=== PATIENT | male | born 1950 | race Caucasian/White ===

== ENCOUNTER 2017-04-27 14:13 | Outpatient (CLI) | payer OTHER | END 2017-04-27 14:14 | disposition critical access hospital (66) | DX: R55 Syncope and collapse (principal) | CPT/HCPCS: A0425; A0427 ==

== ENCOUNTER 2017-04-27 14:36 | Inpatient (IN) | payer OTHER ==
--- NOTE | 2017-04-27 14:44 | ED Physician Documentation ---
PD HPI SYNCOPE - Stated complaint Stated Complaint: SYNCOPE - History obtained from History obtained from: Patient, EMS - History of Present Illness Witnessed: Witnessed (He was at a meeting this morning, had a syncopal episode without injury while sitting. Paramedics were summoned and he felt like he had that go to the bathroom and on ambulating to the bathroom had a second syncopal episode. This is not associated with chest pain, shortness of breath, or abdominal pain. He was incontinent of stool with the second round of syncope. He had 1 L of normal saline prior to arrival. He has a history of coronary disease.) Review of Systems Ten Systems: 10 systems reviewed and negative Constitutional: reports: Fatigue. denies: Fever, Chills Cardiac: denies: Chest pain / pressure, Palpitations Respiratory: denies: Dyspnea, Cough PD PAST MEDICAL HISTORY - Past Medical History Cardiovascular: [place] Respiratory: COPD Neuro: None GI: None : Renal insuffiency HEENT: None Psych: None Musculoskeletal: None Derm: None - Past Surgical History Past Surgical History: Yes HEENT: Other - Present Medications Home Medications: Ambulatory Orders Medication Instructions Recorded Confirmed Atorvastatin [Lipitor] 40 mg PO DAILY 03/04/16 03/04/16 Chlorthalidone 50 mg PO DAILY 03/04/16 03/04/16 Lisinopril 20 mg PO DAILY 03/04/16 03/04/16 Metoprolol Tartrate 25 mg PO BID 03/04/16 03/04/16 amLODIPine [Norvasc] 10 mg PO DAILY 03/04/16 03/04/16 cloNIDine [Catapres] 0.1 mg PO TID 03/04/16 03/04/16 - Allergies Allergies/Adverse Reactions: Allergies Allergy/AdvReac Type Severity Reaction Status Date / Time Sulfa (Sulfonamide Allergy Unknown UNKNOWN Verified 04/27/17 14:51 Antibiotics) - Social History Does the pt smoke?: Yes Smoking Status: Current every day smoker Does the pt drink ETOH?: Yes Does the pt have substance abuse?: No - Family History Family history: reports: Non contributory - Immunizations Immunizations are current?: No PD ED PE NORMAL - Vitals Vital signs reviewed: Yes - General General: Alert and oriented X 3, No acute distress - HEENT HEENT: PERRL, EOMI - Neck Neck: Supple, no meningeal sign, No bony TTP - Cardiac Cardiac: RRR, No murmur - Respiratory Respiratory: No respiratory distress, Clear bilaterally - Abdomen Abdomen: Soft, Non tender - Rectal Rectal: Other (Brown guaiac-negative stool) - Back Back: No CVA TTP, No spinal TTP - Derm Derm: Normal color, Warm and dry - Extremities Extremities: No edema, No calf tenderness / cord - Neuro Neuro: Alert and oriented X 3, Normal speech - Psych Psych: Normal mood, Normal affect Results - Vitals Vitals: Vital Signs - 24 hr 04/27/17 04/27/17 04/27/17 14:40 15:08 15:40 Temperature 36.0 C L Heart Rate 57 L Respiratory 17 Rate Blood Pressure 156/78 H 173/87 H O2 Saturation 97 Oxygen O2 Source Room air - EKG (time done) 1502 Rate: Rate (enter#) (56) Rhythm: NSR, LAE Intervals: Normal [place] QRS: LVH Ischemia: Q waves (inferior) Compare to prior EKG: Unchanged from prior EKG (from 03/03/16) Computer interpretation: Agree with computer - Labs Labs: Laboratory Tests 04/27/17 04/27/17 04/27/17 15:20 15:20 15:20 WBC 12.8 H RBC 3.97 L Hgb 11.5 L Hct 35.5 L MCV 89.5 MCH 28.9 MCHC 32.3 RDW 13.7 Plt Count 211 MPV 8.2 Neut # 10.8 H Lymph # 1.0 L [place] # 0.6 Eos # 0.2 Baso # 0.1 Absolute Nucleated RBC 0.00 Nucleated RBCs 0.0 Sodium 139 Potassium 5.6 H Chloride 110 Carbon Dioxide 19 L Anion Gap 10.0 BUN 75 H Creatinine 3.1 H Estimated GFR (MDRD) 20 L Glucose 119 H Calcium 8.3 L Total Bilirubin 0.5 AST 15 ALT 12 Alkaline Phosphatase 109 Troponin I < 0.04 Total Protein 6.6 L Albumin 3.3 Globulin 3.3 Albumin/Globulin Ratio 1.0 Lipase 26 PD MEDICAL DECISION MAKING - ED course ED course: 66-year-old gentleman on multiple antihypertensives including chlorthalidone after a syncopal events. Guaiac negative. EKG without change. Noted to have acute on chronic renal failure in a prerenal pattern. Placed on IV fluids. Called to Dr. Powell for admission at 3:51 PM. Departure - Departure Disposition: 66 [facility] DC/Xfer Clinical Impression: Syncope Qualifiers: Syncope type: unspecified Qualified Code(s): R55 - Syncope and collapse ARF (acute renal failure) Qualifiers: Acute renal failure type: unspecified Qualified Code(s): N17.9 - Acute kidney failure, unspecified Condition: Serious
[2017-04-27 15:38] LABS: BASOPHILS # (AUTO) 0.1 10^3/uL (0.0-0.1); BASOPHILS % (AUTO) 0.6 %; EOSINOPHILS # (AUTO) 0.2 10^3/uL (0.0-0.7); EOSINOPHILS % (AUTO) 1.9 %; HCT - HEMATOCRIT 35.5 % (42.0-52.0); HGB - HEMOGLOBIN 11.5 g/dL (14.0-18.0); MEAN CORPUSCULAR HEMOGLOBIN 28.9 pg (27.0-31.0); MEAN CORPUSCULAR HGB CONC 32.3 g/dL (32.0-36.0); MEAN CORPUSCULAR VOLUME 89.5 fL (80.0-94.0); MEAN PLATELET VOLUME 8.2 fL (7.4-11.4); MONOCYTES # (AUTO) 0.6 10^3/uL (0.0-1.0); MONOCYTES % (AUTO) 4.7 %; NEUTROPHILS # (AUTO) 10.8 10^3/uL (1.5-6.6); NEUTROPHILS % (AUTO) 84.8 %; RED BLOOD COUNT 3.97 10^6/uL (4.70-6.10); RED CELL DISTRIBUTION WIDTH 13.7 % (12.0-15.0); UNCORRECTED WHITE BLOOD COUNT 12.8 x10^3/uL; WHITE BLOOD COUNT 12.8 x10^3/uL (4.8-10.8)
[2017-04-27 15:39] LABS: BILIRUBIN,TOTAL 0.5 mg/dL (0.2-1.0); CALCIUM 8.3 mg/dL (8.5-10.3); CREATININE 3.1 mg/dL (0.6-1.2); POTASSIUM 5.6 mmol/L (3.5-5.0); TOTAL PROTEIN 6.6 g/dL (6.7-8.2)
[2017-04-27] MEDS ORDERED: SODIUM CHLORIDE 0.9% 1,000 ML IV ONE (15:51)
[2017-04-27] MEDS ORDERED: SODIUM CHLORIDE FLUSH 0.9% 10 ML SYRINGE IVP PRN (17:08)
[2017-04-27] MEDS ORDERED: ONDANSETRON 4 MG/2 ML VIAL IVP PRN (17:08)
[2017-04-27] MEDS ORDERED: ACETAMINOPHEN 325 MG TABLET PO PRN (17:08)
[2017-04-27] MEDS ORDERED: ZOLPIDEM 5 MG TABLET PO PRN (17:08)
[2017-04-27] MEDS ORDERED: SODIUM POLYSTYRENE SULFONATE 15 GM/60 ML BOTTLE PO SCH (18:00)
[2017-04-27] MEDS ORDERED: SODIUM CHLORIDE 0.9% 1,000 ML IV SCH (18:00)
[2017-04-27] MEDS: cloNIDine 0.1 MG TABLET PO SCH ×2 (18:23→21:26)
--- NOTE | 2017-04-27 18:24 | HISTORY & PHYSICAL EXAMINATION ---
Chief Complaint - Chief Complaint Chief Complaint: syncope History of Present Illness - Admitted From Admitted From:: [facility] - History Obtained From History obtained from: patient - History of Present Illness Pain/Problem Location Description: Pt denies pain HPI Comment/Other: 66 years old male with Past Medical History of Syncope, uncontrolled Hypertension, vague remote history of "heart attack" and chronic renal insufficiency, cigarette smoker, who present Emergency Department for evaluation syncope. Patient report he had two episode of syncope. The first one happened when he had a meeting while sitting. The second one occurs when he tried to go to the bathroom when paramedics arrived. Patient report he did not have any injuries in these two episodes. There is no chest pain, palpitation, short of breathing, cough, nausea, vomit, diaphoretic or other symptoms associated with this two episodes. Upon review of patient's medical history, patient had similar episode of syncope occurred on 02/2016. Unfortunately patient refused to be further evaluated at that time, left hospital the same day. His last myocardial perfusion scan at April 2013 revealed a large focus of markedly decreased activity in the inferior wall extending to the septum on both stress and rest views. Ejection fraction was estimated at 40%. Patient's initiate BP at ER was 156/78 then upto 194/87. After admission of Clonidine, patient's BP was down to 145/75. Pt had slight elevated WBC at 12.8, Potassium 5.6, BUN 75, creatinine 3.1, troponin less than 0.04. Patient had BUN 54, Creatinine 2.5 with GFR of 26 at 08/2015. Patient is admitted for syncope and acute on chronic renal insufficiency. Review of Systems - Constitutional Constitutional: reports: Fatigue, Weakness. denies: Fever, Chills, Malaise, Poor appetite, Diaphoresis, Night sweats, Weight gain, Weight loss, Other - Eyes Eyes: denies: Pain, Irritation, Amaurosis, Blurred vision, Spots in vision, Field loss, Vision loss, Dipolpia, Corrective lenses, Other - Ears, Nose & Throat Ears, Nose & Throat: denies: Ear pain, Hearing loss, Hearing aids, Tinnitus, Vertigo, Nasal pain, Nasal discharge, Nosebleeds, Nasal obstruction, Nasal congestion, Postnasal drainage, Dentures, Sore throat, Hoarseness, Mouth lesions , Bleeding gums, Dental decay, Dental pain, Other - Cardiovascular Cariovascular: reports: Syncope. denies: Irregular heart rate, Palpitations, Chest pain, Edema, Lightheadedness, Exertional dyspnea, Decr. exercise tolerance , Orthopnea, Other - Respiratory Respiratory: denies: Cough, Sputum production, Wheezing, Snoring, Hemoptysis, Orthopnea, SOB at rest, SOB with exertion, Apnea, Stridor, Pleuritic pain, Other - Gastrointestinal Gastrointestinal: denies: Abdominal pain, Abdominal distention, Constipation, Diarrhea, Change in bowel habits, Rectal bleeding, Black stools, Bloody stools, Nausea, Vomiting, Bile emesis, Gus blood emesis, Coffee grounds emesis, Reflux /heartburn, Bloating, Poor appetite, Other - Genitourinary Genitourinary: denies: Dysuria, Frequency, Urgency, Hematuria, Incontinence, Flank pain, Nocturia, Urethral discharge, Sexual dysfunction, Other - Musculoskeletal Musculoskeletal: denies: Muscle pain, Back pain, Muscle aches, Stiffness, Limited range of motion, Muscle weakness, Gout, Joint pain, Joint swelling, Other - Integumentary Integumentary: denies: Rash, Pruritis, Lesions, Dryness, Lumps, Acne, Pigment changes, Nail changes, Hair changes, Other - Neurological Neurological: reports: General weakness. denies: Focal weakness, Headache, Dizziness, Numbness, Memory problems, Pre-existing deficit, Abnormal gait, Seizures, Incoordination, Slurred speech, Other - Psychiatric Psychiatric: denies: Depression, Anxiety, Suicidal, Delusions, Hallucinations, Homicidal, Other - Endocrine Endocrine: denies: Polyuria, Polydypsia, Polyphagia, Intolerance to cold, Intolerance to heat, Other - Hematologic/Lymphatic Hematologic/Lymphatic: denies: Anemia, Bruising, Petechiae, Blood clots, Lymphadenopathy, Bleeding tendencies, Recurrent infections, Other History - Past Medical History Cardiovascular: reports: Hypertension, [place] Respiratory: reports: COPD Neuro: reports: None GI: reports: None : reports: Renal insuffiency HEENT: reports: None Psych: reports: None Musculoskeletal: reports: None Derm: reports: None MRSA Hx?: No - Past Surgical History Ortho: reports: Other HEENT: reports: Tonsil/Adenoidectomy, Other - Family & Social History Family History: Mother: (both were from [place]), Father: Living arrangement: At home Social History Notes: work at [employer] store - Substance History Use: Uses substance without health or social issues: Tobacco (one pack per day) Dependence: Experiences withdrawal or developed tolerances: Tobacco Tobacco Details: Cigarettes (one pack per day) - POLST POLST Status: Full Code Meds/Allgy - Home Medications Home Medications: Ambulatory Orders Medication Instructions Recorded Confirmed Chlorthalidone 50 mg PO DAILY 03/04/16 04/28/17 Lisinopril 40 mg PO DAILY 03/04/16 04/28/17 Amlodipine Besylate [Norvasc] 10 mg PO DAILY 04/28/17 04/28/17 Aspirin [Aspirin EC] 81 mg PO DAILY 04/28/17 04/28/17 Atorvastatin Calcium 40 mg PO QPM 04/28/17 04/28/17 Clonidine HCl [Catapres] 0.2 mg PO BID 04/28/17 04/28/17 Metoprolol Succinate [Toprol Xl] 50 mg PO BID 04/28/17 04/28/17 - Allergies Allergies/Adverse Reactions: Allergies Allergy/AdvReac Type Severity Reaction Status Date / Time Sulfa (Sulfonamide Allergy Unknown UNKNOWN Verified 04/27/17 14:51 Antibiotics) Exam - Vital Signs Vital Signs: Vital Signs x48h Temp Pulse Pulse Resp BP BP Pulse Ox 04/27/17 17:57 36.3 C L 62 18 193/87 H 98 04/27/17 17:40 58 L 18 174/84 H 98 - Physical Exam General Appearance: positive: No acute distress, Alert. negative: Mild distress , Moderate distress, Severe distress, Anxious, Lethargic, Other Eyes Bilateral: positive: Normal inspection, PERRL. negative: EOMI, No lid inflammation, Conjunctivae nml, No scleral icterus, Other ENT: positive: ENT inspection nml, Pharynx nml, No signs of dehydration. negative: Purulent nasal drainage, Pharyngeal erythema, Oral lesions, Dry mucous membranes, Other Neck: positive: Nml inspection, No JVD, Trachea midline Respiratory: positive: Chest non-tender, No respiratory distress, Other ( diminished lung bilateral). negative: Breath sounds nml, Wheezes, Rales, Rhonchi Cardiovascular: positive: Regular rate & rhythm, No murmur, No gallop. negative : Irregularly irregular, Extrasystoles, Tachycardia, Bradycardia, PMI displaced laterally, JVD present, Systolic murmur, Diastolic murmur, Gallop/S3, Gallop/S4 , Friction rub, Decreased pulse(s), Crepitus, Other Peripheral Pulses: positive: 2+. negative: 1+, 0, Other Abdomen: positive: Non-tender, Nml bowel sounds, No distention. negative: No organomegaly, Tenderness, Guarding, Rebound, Hepatomegaly, Splenomegaly, Mass, Abnml bowel sounds, Bruit, Other Back: positive: Nml inspection. negative: CVA tenderness (R), CVA tenderness (L ), Other Skin: positive: Color nml, Warm. negative: No rash, Dry, Cyanosis, Diaphoresis , Pallor, Skin rash, Decubitus, Laceration (cm), Puncture wound, Embolic lesions , Other Extremities: positive: Non-tender, Full ROM, Nml appearance. negative: No pedal edema, Pedal edema, Calf tenderness, Joint swelling, Mary's sign/cords, Other Neurologic/Psychiatric: positive: Oriented x3, CN's nml (2-12), Motor nml, Sensation nml, Mood/affect nml. negative: Disoriented to person, Disoriented to place, Disoriented to time, Weakness, Sensory loss, Facial droop, Slurred/ abnml speech, Depressed mood/affect, Other Conclusion/Plan - Problem List (1) Syncope Conclusion/Plan: 1, syncope: Strong family history of [place], and vague history of patient's own [place], uncontrolled HTN, abnormal ECHO study at 2013, all strongly suggest syncope could be caused by abnormal function of heart Plan: ECHO, follow up. on tele fall precautions Qualifiers: Syncope type: unspecified Qualified Code(s): R55 - Syncope and collapse - Lab Results Fish Bones: 04/28/17 04:55 04/28/17 04:55 - EKG Results EKG Comparison: Unchanged from prior EKG EKG Findings: rate 56, rhythm: NSR, LAE, intervals: normal [place], QRS: LVH, Ischemia: Q [place] ( inferior) - Other Other Results/Comments: 1, syncope: Strong family history of [place], and vague history of patient's own [place], uncontrolled HTN. Plan: ECHO, follow up. on tele fall precautions 2, acute on chronic renal insufficiency Plan: moderate IVF NC 125 cc/h. EF 40% was at four years hold nephrotoxic agents, hydration, control of BP, hold lisinopril test total CK US of kidney 3, uncontrolled HTN Plan: reconciliation of home BP medication, closely monitor 4, Hyperkalemia at 5.6 once kayexalate, recheck potassium, EKG without changing from prior one (02/2016 ) 5, CHF, diastolic or systolic or combination. check BNP, and CXR, ECHO 6, Tobacco abuse advise patient cessation, patient decline nicotin patch Prophylaxis: pepcid for GI, SCD and Heparin for DVT
[2017-04-27] MEDS: SODIUM CHLORIDE 0.9% 1,000 ML IV SCH ×2 (18:31→22:26)
[2017-04-27] MEDS ORDERED: ATORVASTATIN 40 MG TABLET PO SCH (21:00)
[2017-04-27] MEDS: METOPROLOL TARTRATE 25 MG TABLET PO SCH (21:06)
[2017-04-27] MEDS: HEPARIN 5,000 UNIT/ML VIAL SUBQ SCH (21:11)
[2017-04-27] MEDS: SODIUM CHLORIDE FLUSH 0.9% 10 ML SYRINGE IVP SCH (21:11)
[2017-04-28 05:20] LABS: BASOPHILS % (AUTO) 0.5 %; EOSINOPHILS # (AUTO) 0.2 10^3/uL (0.0-0.7); HCT - HEMATOCRIT 29.3 % (42.0-52.0); HGB - HEMOGLOBIN 9.9 g/dL (14.0-18.0); LYMPHOCYTES # (AUTO) 1.2 10^3/uL (1.5-3.5); LYMPHOCYTES % (AUTO) 14.1 %; MEAN CORPUSCULAR HEMOGLOBIN 30.2 pg (27.0-31.0); MEAN CORPUSCULAR HGB CONC 33.8 g/dL (32.0-36.0); MEAN CORPUSCULAR VOLUME 89.2 fL (80.0-94.0); MEAN PLATELET VOLUME 8.2 fL (7.4-11.4); MONOCYTES # (AUTO) 0.5 10^3/uL (0.0-1.0); MONOCYTES % (AUTO) 5.7 %; NEUTROPHILS # (AUTO) 6.7 10^3/uL (1.5-6.6); NEUTROPHILS % (AUTO) 77.7 %; NUCLEATED RED BLOOD CELLS AUTO 0.1 /100WBC; RED BLOOD COUNT 3.28 10^6/uL (4.70-6.10); RED CELL DISTRIBUTION WIDTH 13.9 % (12.0-15.0); UNCORRECTED WHITE BLOOD COUNT 8.7 x10^3/uL; WHITE BLOOD COUNT 8.7 x10^3/uL (4.8-10.8)
[2017-04-28] MEDS: SODIUM CHLORIDE 0.9% 1,000 ML IV SCH (05:52)
[2017-04-28] MEDS: cloNIDine 0.1 MG TABLET PO SCH ×2 (05:52→12:57)
[2017-04-28] MEDS: SODIUM CHLORIDE FLUSH 0.9% 10 ML SYRINGE IVP SCH (05:55)
[2017-04-28 06:08] LABS: ALBUMIN/GLOBULIN RATIO 1.2 (1.0-2.2); BILIRUBIN,TOTAL 0.8 mg/dL (0.2-1.0); CALCIUM 7.9 mg/dL (8.5-10.3); CREATININE 3.5 mg/dL (0.6-1.2); POTASSIUM 5.2 mmol/L (3.5-5.0); TOTAL PROTEIN 5.6 g/dL (6.7-8.2)
--- NOTE | 2017-04-28 08:25 | PROVIDER PROGRESS NOTE ---
Subjective - Prog Note Date Prog Note Date: 04/28/17 Prog Note Time: 08:19 - Subjective Pt reports feeling: Improved Subjective: pt state he feels much better, no complaints. Patient told me he want to leave hospital now. Pt told to nurse the same thing, he want to leave. After I discussed with patient, patient agree to have ECHO test, then he want to leave hospital. Objective - Vital Signs/Intake & Output Vital Signs: Vital Signs x48h Temp Pulse Resp BP Pulse Ox 04/28/17 07:58 36.6 C 56 L 16 194/88 H 95 04/28/17 04:10 36.5 C 60 16 146/87 H 95 Intake & Output: Intake & Output 04/25/17 04/26/17 04/27/17 04/28/17 23:59 23:59 23:59 23:59 Intake Total 880 2059 Balance 880 2058 - Objective General Appearance: positive: No acute distress, Alert. negative: Mild distress , Moderate distress, Severe distress, Anxious, Lethargic, Other Eyes Bilateral: positive: Normal inspection, PERRL. negative: EOMI, No lid inflammation, Conjunctivae nml, No scleral icterus, Other ENT: positive: ENT inspection nml, Pharynx nml, No signs of dehydration. negative: Purulent nasal drainage, Pharyngeal erythema, Oral lesions, Dry mucous membranes, Other Neck: positive: Nml inspection, Trachea midline. negative: Thyroid nml, No JVD , Thyromegaly, Lymphadenopathy (R), Lymphadenopathy (L), Stiff neck, Kernig's sign, Brudzinski's sign, Carotid bruit, Swelling/bruising, Tracheal deviation, Other Respiratory: positive: Chest non-tender, No respiratory distress, Breath sounds nml. negative: Wheezes, Rales, Rhonchi, Other Cardiovascular: positive: Regular rate & rhythm, No murmur, No gallop. negative : Irregularly irregular, Extrasystoles, Tachycardia, Bradycardia, PMI displaced laterally, JVD present, Systolic murmur, Diastolic murmur, Gallop/S3, Gallop/S4 , Friction rub, Decreased pulse(s), Crepitus, Other Peripheral Pulses: 2+ Radial (R), 2+ Radial (L), 2+ Dorsalis pedis (R), 2+ Dorsalis pedis (L) Abdomen: positive: Non-tender, Nml bowel sounds, No distention. negative: No organomegaly, Tenderness, Guarding, Rebound, Hepatomegaly, Splenomegaly, Mass, Abnml bowel sounds, Bruit, Other Back: positive: Nml inspection. negative: CVA tenderness (R), CVA tenderness (L ), Other Skin: positive: Color nml, No rash, Other (cold for distal four extremities) Extremities: positive: Non-tender, Full ROM, Nml appearance. negative: No pedal edema, Pedal edema, Calf tenderness, Joint swelling, Mary's sign/cords, Other Neurologic/Psychiatric: positive: Oriented x3, CN's nml (2-12), Motor nml, Sensation nml. negative: Mood/affect nml, Disoriented to person, Disoriented to place, Disoriented to time, Weakness, Sensory loss, Facial droop, Slurred/ abnml speech, Depressed mood/affect, Other - Lab Results Fish Bones: 04/28/17 04:55 04/28/17 04:55 Other Labs: Lab Results x24hrs 04/28/17 04/28/17 04/28/17 Range/Units 04:55 04:55 04:55 WBC 8.7 (4.8-10.8) x10^3/uL RBC 3.28 L (4.70-6.10) 10^6/uL Hgb 9.9 L (14.0-18.0) g/dL Hct 29.3 L (42.0-52.0) % MCV 89.2 (80.0-94.0) fL MCH 30.2 (27.0-31.0) pg MCHC 33.8 (32.0-36.0) g/dL RDW 13.9 (12.0-15.0) % Plt Count 180 (130-450) 10^3/uL MPV 8.2 (7.4-11.4) fL Neut # 6.7 H (1.5-6.6) 10^3/uL Lymph # 1.2 L (1.5-3.5) 10^3/uL [place] # 0.5 (0.0-1.0) 10^3/uL Eos # 0.2 (0.0-0.7) 10^3/uL Baso # 0.0 (0.0-0.1) 10^3/uL Absolute Nucleated RBC 0.01 x10^3/uL Nucleated RBCs 0.1 /100WBC Sodium 138 (135-145) mmol/L Potassium 5.2 H (3.5-5.0) mmol/L Chloride 113 H (101-111) mmol/L Carbon Dioxide 17 L (21-32) mmol/L Anion Gap 8.0 (6-13) BUN 81 H* (6-20) mg/dL Creatinine 3.5 H (0.6-1.2) mg/dL Estimated GFR (MDRD) 18 L (>89) Glucose 100 (70-100) mg/dL Calcium 7.9 L (8.5-10.3) mg/dL Total Bilirubin 0.8 (0.2-1.0) mg/dL AST 12 (10-42) IU/L ALT 11 (10-60) IU/L Alkaline Phosphatase 96 (42-121) IU/L Total Creatine Kinase 34 (22-269) IU/L Total Protein 5.6 L (6.7-8.2) g/dL Albumin 3.0 L (3.2-5.5) g/dL Globulin 2.6 (2.1-4.2) g/dL Albumin/Globulin Ratio 1.2 (1.0-2.2) Assessment/Plan - Problem List (1) Syncope Impression: pt's vital is stable, but creatinine from 3.1 to 3.5. pt want to leave hospital, now he agree to have ECHO, then he will leave. check BNP and CXR check total CK for acute CKD, continue IVF. Pt's elevated creatinine and BUN seems not response to hydration well. pt's BP is well controlled Qualifiers: Syncope type: unspecified Qualified Code(s): R55 - Syncope and collapse
[2017-04-28] MEDS: METOPROLOL TARTRATE 25 MG TABLET PO SCH (08:30)
[2017-04-28] MEDS: HEPARIN 5,000 UNIT/ML VIAL SUBQ SCH (08:30)
[2017-04-28] MEDS ORDERED: amLODIPine 5 MG TABLET PO SCH (09:00)
[2017-04-28] MEDS ORDERED: FAMOTIDINE 20 MG TABLET PO SCH (09:00)
[2017-04-28] MEDS ORDERED: POLYETHYLENE GLYCOL 3350 17 GM PACKET PO SCH (09:00)
--- NOTE | 2017-04-28 10:03 | Discharge Plan ---
Discharge Plan Disposition: Home, Self Care Condition: Serious Diet: Low Sodium Activity Restrictions: Additional Comments (bed rest until cleaned by PCP) Shower Restrictions: No Driving Restrictions: Yes (until cleaned by PCP) Weight Bearing: Full Weight Instruction Topics: Echo Transthoracic Surface, Syncope Causes Additional Instructions or Follow Up instructions: See PCP as soon as possible, or in one week, which will be the earliest. Make appointment see high lead yarder and nephrology as soon as possible, or in one week , which will be the earliest. Patient requests he wants to be discharged on today. Patient is advised that his medical condition is serious, and could be deteriorated. Patient is advised if his symptoms return or worsen, please call 911 or go to the nearest [facility] room. Patient is welcomed back to our service. Follow-Up Care: [facility] - [facility] No Smoking: If you smoke, Please STOP! Call for help. Follow-up with: Samuel Zuñiga MD [Credentialed Staff Provider] -
--- NOTE | 2017-04-28 12:09 | XRAY Preliminary Report ---
Exam: XR Chest 1 View IMPRESSION: Unremarkable chest for age, body size and inspiratory effort. No pneumonia, CHF or other demonstrated cause for shortness of breath. [facility] SITE ID: [id number]
--- NOTE | 2017-04-28 12:12 | XRAY Report ---
EXAM: CHEST RADIOGRAPHY, PORTABLE ONE VIEW EXAM DATE: 04/28/2017 09:31 AM. CLINICAL HISTORY: 66-year-old male with shortness of breath. COMPARISON: Two-view chest radiograph 03 Mar 2016. TECHNIQUE: 0856 hour AP upright portable view. FINDINGS: Lungs/Pleura: No focal opacities evident. No pleural effusion. No pneumothorax. Mediastinum: Within exam limitations, cardiomediastinal contour is normal. No pulmonary vascular malcom estion or adenopathy. Other: Trachea is midline. Osseous structures unremarkable. IMPRESSION: Unremarkable chest for age, body size and inspiratory effort. No pneumonia, CHF or other demonstrated cause for shortness of breath. [facility] Referring Provider Line: [phone] SITE ID: [id number]
[2017-04-28] MEDS ORDERED: CHLORTHALIDONE 25 MG TABLET PO SCH (13:00)
[2017-04-28 13:17] VITALS: BP 209/89
--- NOTE | 2017-04-30 10:12 | DISCHARGE SUMMARY ---
DATE OF ADMISSION: 04/27/2017 DATE OF DISCHARGE: 04/28/2017 PRIMARY CARE PROVIDER: [facility]. The patient does not have stable primary care provider because the shift. The patient comes here with chief complaint of syncope. After patient in the emergency room we also f ound the patient to have renal insufficiency, most likely for acute on chronic renal insufficiency. T he patient reports he had 2 episodes of syncope yesterday. The patient admit date was 04/28/2017 and discharged 04/29/2017. The patient wanted to be discharged today, but we wanted patient to continue i npatient because the patient's medical condition is severe, but the patient wanted to be discharged t rajwinder. DISCHARGE DIAGNOSES: 1. Syncope. 2. Acute and chronic renal insufficiency. 3. Uncontrolled hypertension, currently smokes. 4. Congestive heart failure. 5. Hypokalemia. MEDICATIONS AT TIME OF DISCHARGE: 1. Metoprolol 25 mg b.i.d. 2. Amlodipine 10 mg p.o. daily. 3. Clonidine 0.5 mg q. t.i.d. 4. Chlorthalidone 50 mg p.o. daily. 5. Atorvastatin 40 mg p.o. daily. 6. Lisinopril 20 mg p.o. daily. HOSPITAL COURSE: The patient came to the emergency room yesterday and complained of having 2 episodes of syncope. In the emergency room we found the patient also has renal insufficiency, creatinine 3.1, BUN 74. Patient treated with IV fluids. Also patient on tele and fall precaution, schedule patient f or echo. Today, 04/28/2017, the patient requested to be discharged. The reason says the echo he paid last time was too expensive for him to pay back. He wanted to know t he gibson for an echo. We tried to call his insurance, but today we could not get an answer because it is Sunday, and the patient is told he can call there Sunday to get the gibson, but the patient did not want to wait until Sunday, he wanted to be discharged today. The patient was told his medical con dition is severe and could deteriorate, but the patient insisted he wanted to be discharged. The broderick ent is advised to see his PCP as soon as possible. Also advised to see car dryer and triage rn as soon as possible or in 1 week at least. Patient also advised to go to the emergency room and call 911 if symptoms return or worsen. Today we have lab tests for the patient. The patient's BUN 81, creatinine 3.5. The patient is notifie d his condition is severe. Also, for the hospitalist course please refer to 04/27/2017 my dictated H and P. On imaging studies, the patient had x-ray done on 03/29/2017, chest x-ray, reason that patient had sh ort of breath. Findings were unremarkable. No pneumonia, congestive heart failure, or other cause of short of breath. INTERVENTION: IV fluid, help for renal deficiency, chronic. Will also check patient's total CK, also order ultrasound for kidneys. For syncope, will do the test echo. The patient given fall precautions. PHYSICAL EXAMINATION: GENERAL APPEARANCE: The patient appears in no acute distress. HEENT: Eyes normal on inspection. ENT: Inspection is normal. NECK: No JVD. Trachea in midline. Normal on inspection. RESPIRATORY: Chest was nontender, no respiratory distress. CARDIOVASCULAR: Regular rate and rhythm, no murmur, no gallop. Peripheral pulses +2. ABDOMEN: . Normal bowel sounds, no distention. BACK: Normal on inspection. SKIN: Color is normal. Distal extremities are cold. EXTREMITIES: No tenderness. Full range of motion. Normal appearance. NEURO: The patient is alert, oriented x3. Cranial nerves normal. Sensation is normal. PSYCH: Mood and affect normal. FOLLOWUP: The patient advised to followup with primary care provider as soon as possible or within 1 week, which ever is first. Followup car dryer and triage rn as soon as possible or within 1 wee k, which ever is first. The patient notified his condition is severe and patient wanted to be discha rged, and patient advised if any condition continues or becomes worse, call 911 or return to the [facility] room, we welcome patient to come back to our service. The patient advised cardiac diet. Activit y, bed rest. TIME SPENT FOR DISCHARGE: More than 50 minutes. JOB #: [id number] EXT JOB #:[id number]
== END 2017-04-28 13:10 | disposition home or self-care (01) | DRG 312 ==
LOC: EDUNIT# → ED 14:36 → MS 17:08
PROVIDERS: ADMIT Nurse Practitioner Gerontology; ATTEND Nurse Practitioner Gerontology
DX: R55 Syncope and collapse (principal); I13.0 Hypertensive heart and chronic kidney disease with heart failure and stage 1 through stage 4 chronic kidney disease, or unspecified chronic kidney disease; N28.9 Disorder of kidney and ureter, unspecified; N18.9 Chronic kidney disease, unspecified; I50.9 Heart failure, unspecified; F17.200 Nicotine dependence, unspecified, uncomplicated; I25.2 Old myocardial infarction; E87.5 Hyperkalemia; Z88.2 Allergy status to sulfonamides; Z82.49 Family history of ischemic heart disease and other diseases of the circulatory system
CPT/HCPCS: 36415; 71010; 80053; 82550; 83690; 83880; 84484; 85025; 93005; 96360; 99284; 99285

== ENCOUNTER 2017-10-07 09:09 | Emergency (ER) | payer MEDICARE, OTHER ==
--- NOTE | 2017-10-07 10:48 | ED Physician Documentation ---
History of Present Illness - Stated complaint Stated Complaint: BLOOD IN COLOSTOMY BAG - Chief complaint Chief Complaint: Abd Pain - History obtained from History obtained from: Patient, Family - History of Present Illness Timing: Today - Additonal information Additional information: 67-year-old male with a history of congestive heart failure and end-stage renal dialysis has had a colostomy done 10 days ago at [facility] and he is on some Coumadin. He was recently switched from Eliquis to Coumadin about 3 days ago. This morning his ostomy bag filled with blood. Review of Systems Constitutional: denies: Fever Eyes: denies: Decreased vision Ears: denies: Ear pain Nose: denies: Rhinorrhea / runny nose, Congestion Throat: denies: Sore throat Cardiac: denies: Chest pain / pressure Respiratory: denies: Dyspnea, Cough GI: reports: Abdominal Pain, Nausea, Bloody / black stool. denies: Vomiting : denies: Dysuria, Frequency Skin: denies: Rash Musculoskeletal: denies: Neck pain, Back pain, Extremity pain Neurologic: reports: Generalized weakness. denies: Focal weakness, Numbness PD PAST MEDICAL HISTORY - Past Medical History Cardiovascular: Hypertension, [place] Respiratory: COPD Neuro: None GI: None : Renal insuffiency HEENT: None Psych: None Musculoskeletal: None Derm: None - Past Surgical History Past Surgical History: Yes General: Bowel surgery Ortho: Other HEENT: Tonsil/Adenoidectomy, Other - Present Medications Home Medications: Ambulatory Orders Medication Instructions Recorded Confirmed Chlorthalidone 50 mg PO DAILY 03/04/16 10/07/17 Lisinopril 40 mg PO DAILY 03/04/16 10/07/17 Amlodipine Besylate [Norvasc] 10 mg PO DAILY 04/28/17 10/07/17 Aspirin [Aspirin EC] 81 mg PO DAILY 04/28/17 10/07/17 Atorvastatin Calcium 40 mg PO QPM 04/28/17 10/07/17 Clonidine HCl [Catapres] 0.2 mg PO BID 04/28/17 10/07/17 Metoprolol Succinate [Toprol Xl] 50 mg PO BID 04/28/17 04/28/17 - Allergies Allergies/Adverse Reactions: Allergies Allergy/AdvReac Type Severity Reaction Status Date / Time Sulfa (Sulfonamide Allergy Unknown UNKNOWN Verified 04/27/17 14:51 Antibiotics) - Social History Does the pt smoke?: Yes Smoking Status: Current every day smoker Does the pt drink ETOH?: Yes Does the pt have substance abuse?: No - Immunizations Immunizations are current?: No - POLST POLST Status: Full Code PD ED PE NORMAL - Vitals Vital signs reviewed: Yes (hypertensive ) - General General: Alert and oriented X 3, No acute distress, Well developed/nourished, Other (67 y/o male gaunt appearing appears much older than the last time I saw him about 1 1/2 years ago. ) - HEENT HEENT: Atraumatic, PERRL - Neck Neck: Supple, no meningeal sign, No bony TTP - Cardiac Cardiac: RRR, No murmur - Respiratory Respiratory: No respiratory distress, Clear bilaterally - Abdomen Abdomen: Soft, Non tender, Other (There is an ostomy bag on the right abdomen that is filled with blood and feces. ) - Back Back: No CVA TTP, No spinal TTP - Derm Derm: Normal color, Warm and dry, No rash - Extremities Extremities: No deformity, No edema - Neuro Neuro: Alert and oriented X 3, rod greaser 2-12 intact, No motor deficit, No sensory deficit, Normal speech Eye Opening: Spontaneous Motor: Obeys Commands Verbal: Oriented GCS Score: 15 - Psych Psych: Normal mood, Normal affect Results - Vitals Vitals: Vital Signs - 24 hr 10/07/17 10/07/17 10/07/17 09:15 10:28 12:14 Temperature 37.1 C 36.2 C L Heart Rate 78 111 H 113 H Respiratory 16 12 30 H Rate Blood Pressure 132/73 H 136/91 H 140/112 H O2 Saturation 98 99 98 10/07/17 14:15 Temperature Heart Rate 102 H Respiratory 14 Rate Blood Pressure 142/90 H O2 Saturation 97 Oxygen O2 Source Room air - Labs Labs: Laboratory Tests 10/07/17 10/07/17 10/07/17 11:00 11:00 11:00 WBC 10.0 RBC 3.31 L Hgb 10.3 L Hct 30.2 L MCV 91.2 MCH 31.2 H MCHC 34.3 RDW 14.7 Plt Count 374 MPV 7.1 L Neut # 7.8 H Lymph # 1.1 L [place] # 1.0 Eos # 0.0 Baso # 0.1 Absolute Nucleated RBC 0.00 Nucleated RBC % 0.0 PT 87.2 H INR 8.4 H* Sodium 139 Potassium 3.8 Chloride 96 L Carbon Dioxide 30 Anion Gap 13.0 BUN 17 Creatinine 3.7 H Estimated GFR (MDRD) 17 L Glucose 98 Calcium 8.8 Total Bilirubin 0.4 AST 43 H ALT 19 Alkaline Phosphatase 87 Troponin I Total Protein 6.0 L Albumin 2.3 L Globulin 3.7 Albumin/Globulin Ratio 0.6 L Lipase 22 Blood Type Antibody Screen 10/07/17 10/07/17 11:00 11:28 WBC RBC Hgb Hct MCV MCH MCHC RDW Plt Count MPV Neut # Lymph # [place] # Eos # Baso # Absolute Nucleated RBC Nucleated RBC % PT INR Sodium Potassium Chloride Carbon Dioxide Anion Gap BUN Creatinine Estimated GFR (MDRD) Glucose Calcium Total Bilirubin AST ALT Alkaline Phosphatase Troponin I 0.18 Total Protein Albumin Globulin Albumin/Globulin Ratio Lipase Blood Type O NEGATIVE Antibody Screen NEGATIVE Procedures - IVC sono (time) 1040 Bedside IVC sono: IVC measures (cm) (1.87), Euvolemia PD MEDICAL DECISION MAKING - ED course Complexity details: reviewed old records, reviewed results, re-evaluated patient , considered differential, d/w patient, d/w family, d/w portfolio consultant ([place] surgery here recommends transfer back to [facility]. [facility] surgery at [facility] will consult and asks to have medicine manage this complicated case. Dr. Watts graciously agrees to accept the patient in transfer. ) ED course: 67-year-old male recently placed onto Coumadin now is bleeding from her recent surgical site. IV is begun the INR is checked. Before the INR is back the patient is given IV vitamin K while we await the INR and consideration for k- centra. INR is markedly elevated at 8.4 and he is given a corresponding dose of k-centra. Bleeding slows and arrangements are made for transfer. The ostomy bag is changed and the bleeding actually appears to be occurring from the margin of the ostomy over superior/medial surface. The area is covered with GEL FOAM and suturated with tranexamic acid. The bleeding does not slow much with this. Departure - Departure Disposition: 02 Transfer Acute Care [facility]osp Clinical Impression: Supratherapeutic INR, Bleeding from colostomy stoma Condition: Serious
[2017-10-07 11:19] LABS: BASOPHILS # (AUTO) 0.1 10^3/uL (0.0-0.1); BASOPHILS % (AUTO) 0.6 %; EOSINOPHILS % (AUTO) 0.3 %; HCT - HEMATOCRIT 30.2 % (42.0-52.0); HGB - HEMOGLOBIN 10.3 g/dL (14.0-18.0); LYMPHOCYTES # (AUTO) 1.1 10^3/uL (1.5-3.5); LYMPHOCYTES % (AUTO) 11.2 %; MEAN CORPUSCULAR HEMOGLOBIN 31.2 pg (27.0-31.0); MEAN CORPUSCULAR HGB CONC 34.3 g/dL (32.0-36.0); MEAN CORPUSCULAR VOLUME 91.2 fL (80.0-94.0); MEAN PLATELET VOLUME 7.1 fL (7.4-11.4); MONOCYTES % (AUTO) 9.9 %; NEUTROPHILS # (AUTO) 7.8 10^3/uL (1.5-6.6); RED BLOOD COUNT 3.31 10^6/uL (4.70-6.10); RED CELL DISTRIBUTION WIDTH 14.7 % (12.0-15.0)
[2017-10-07 11:26] LABS: PT - PROTHROMBIN TIME 87.2 secs (9.9-12.6)
[2017-10-07 11:32] LABS: ALBUMIN/GLOBULIN RATIO 0.6 (1.0-2.2); BILIRUBIN,TOTAL 0.4 mg/dL (0.2-1.0); CALCIUM 8.8 mg/dL (8.5-10.3); CREATININE 3.7 mg/dL (0.6-1.2); POTASSIUM 3.8 mmol/L (3.5-5.0)
[2017-10-07 11:33] LABS: INR 8.4 (0.8-1.2)
[2017-10-07] MEDS ORDERED: PROTHROMBIN COMPLEX CONC 500 UNIT VIAL IVP STA (11:36)
[2017-10-07] MEDS ORDERED: TRANEXAMIC ACID 1,000 MG/10 ML VIAL NAS STA (14:09)
[2017-10-07 14:16] VITALS: BP 142/90
[2017-10-07] MEDS ORDERED: SODIUM CHLORIDE 0.9% 1,000 ML IV ONE (14:27)
== END 2017-10-07 14:43 | disposition short-term general hospital (02) ==
LOC: ED 09:09
DX: K94.01 Colostomy hemorrhage (principal); D68.9 Coagulation defect, unspecified; I13.2 Hypertensive heart and chronic kidney disease with heart failure and with stage 5 chronic kidney disease, or end stage renal disease; N18.6 End stage renal disease; I50.9 Heart failure, unspecified; Z99.2 Dependence on renal dialysis; Z79.01 Long term (current) use of anticoagulants; I25.2 Old myocardial infarction; J44.9 Chronic obstructive pulmonary disease, unspecified; Z79.82 Long term (current) use of aspirin; F17.200 Nicotine dependence, unspecified, uncomplicated
CPT/HCPCS: 36415; 80053; 83690; 84484; 85025; 85610; 86850; 86900; 86901; 96374; 99284; 99285; C9132

== ENCOUNTER 2017-10-07 14:37 | Outpatient (CLI) | payer MEDICARE | END 2017-10-07 14:38 | disposition short-term general hospital (02) | LOC: EMS 14:37 | PROVIDERS: ATTEND Surgery | DX: K92.2 Gastrointestinal hemorrhage, unspecified (principal); Z93.3 Colostomy status | CPT/HCPCS: A0425; A0428 ==

== ENCOUNTER 2017-10-16 12:50 | Outpatient (CLI) | payer MEDICARE | END 2017-10-16 12:51 | disposition short-term general hospital (02) | LOC: EMS 12:50 | PROVIDERS: ATTEND Surgery | DX: K92.1 Melena (principal); Z93.3 Colostomy status | CPT/HCPCS: A0425; A0427 ==

== ENCOUNTER 2018-05-22 13:30 | Outpatient (CLI) | payer MEDICARE, MEDICAID ==
[2018-05-22 18:57] LABS: BASOPHILS # (AUTO) 0.1 10^3/uL (0.0-0.1); BASOPHILS % (AUTO) 0.9 %; EOSINOPHILS # (AUTO) 0.1 10^3/uL (0.0-0.7); EOSINOPHILS % (AUTO) 1.6 %; HGB - HEMOGLOBIN 12.5 g/dL (14.0-18.0); LYMPHOCYTES # (AUTO) 1.1 10^3/uL (1.5-3.5); LYMPHOCYTES % (AUTO) 17.6 %; MEAN CORPUSCULAR HEMOGLOBIN 32.2 pg (27.0-31.0); MEAN CORPUSCULAR HGB CONC 32.4 g/dL (32.0-36.0); MEAN CORPUSCULAR VOLUME 99.5 fL (80.0-94.0); MEAN PLATELET VOLUME 8.6 fL (7.4-11.4); MONOCYTES # (AUTO) 0.5 10^3/uL (0.0-1.0); MONOCYTES % (AUTO) 7.2 %; NEUTROPHILS # (AUTO) 4.6 10^3/uL (1.5-6.6); NEUTROPHILS % (AUTO) 72.7 %; PLT - PLATELET COUNT 168 10^3/uL (130-450); RED BLOOD COUNT 3.87 10^6/uL (4.70-6.10); RED CELL DISTRIBUTION WIDTH 15.7 % (12.0-15.0); WHITE BLOOD COUNT 6.3 x10^3/uL (4.8-10.8)
[2018-05-22 19:20] LABS: ALBUMIN 3.6 g/dL (3.2-5.5); ALBUMIN/GLOBULIN RATIO 1.1 (1.0-2.2); CALCIUM 9.1 mg/dL (8.5-10.3); CREATININE 5.6 mg/dL (0.6-1.2)
== END 2018-05-22 13:31 | disposition home or self-care (01) ==
LOC: LAB.N 13:30
PROVIDERS: ATTEND Student in an Organized Health Care Education/Training Program
DX: C64.9 Malignant neoplasm of unspecified kidney, except renal pelvis (principal)
CPT/HCPCS: 36415; 80053; 85025

== ENCOUNTER 2019-04-30 08:00 | Outpatient (CLI) | payer MEDICARE, MEDICAID ==
[2019-04-30 12:16] LABS: BUN - BLOOD UREA NITROGEN 44 mg/dL (6-20); CALCIUM 9.7 mg/dL (8.5-10.3); CARBON DIOXIDE - CO2 30 mmol/L (21-32); CHLORIDE 96 mmol/L (101-111); CHOL/HDL RATIO 2.7 (<5.0); CHOLESTEROL 101 mg/dL; CREATININE 6.2 mg/dL (0.6-1.2); GFR - MDRD 9 (>89); GLUCOSE 88 mg/dL (70-100); HDL CHOLESTEROL 38 mg/dL; LDL CHOLESTEROL,CALCULATED 48 mg/dL; LDL/HDL RATIO 1.3 (<3.6); SODIUM 141 mmol/L (135-145); VLDL CHOLESTEROL 15 mg/dL
== END 2019-04-30 23:59 | disposition home or self-care (01) ==
LOC: LAB.WCP 08:00
PROVIDERS: ATTEND Physician Assistant Medical
DX: I12.0 Hypertensive chronic kidney disease with stage 5 chronic kidney disease or end stage renal disease (principal); N18.6 End stage renal disease
CPT/HCPCS: 36415; 80048; 80061; 83721

== ENCOUNTER 2019-09-14 15:40 | Outpatient (CLI) | payer MEDICARE, MEDICAID | END 2019-09-14 15:41 | disposition critical access hospital (66) | LOC: EMS 15:40 | PROVIDERS: ATTEND Surgery | DX: R53.1 Weakness (principal); M79.18 Myalgia, other site; R29.6 Repeated falls | CPT/HCPCS: A0425; A0429 ==

== ENCOUNTER 2019-09-14 16:02 | Emergency (ER) | payer MEDICARE, MEDICAID ==
[2019-09-14] MEDS ORDERED: SODIUM CHLORIDE 0.9% 1,000 ML IV ONE (16:44)
--- NOTE | 2019-09-14 16:48 | ED Physician Documentation ---
History of Present Illness - Stated complaint Stated Complaint: WEAKNESS - Chief complaint Chief Complaint: Neuro - History obtained from History obtained from: Patient - History of Present Illness Timing: Last night - Additonal information Additional information: 69-year-old dialysis patient had dialysis done yesterday and last night he became profoundly weak. He had 2 falls today and on the second fall the medics brought him to the hospital. The patient states that he feels extremely weak anytime he tries to get up and that is not usual for him. He has a tender area on his buttocks on the left side that is the thing that bothers him the most. Review of Systems Constitutional: denies: Fever Eyes: denies: Decreased vision Ears: denies: Ear pain Nose: denies: Congestion Throat: denies: Sore throat Cardiac: denies: Chest pain / pressure, Palpitations, Pedal edema, Calf pain Respiratory: denies: Dyspnea, Cough GI: denies: Nausea, Vomiting : denies: Dysuria Musculoskeletal: reports: Back pain, Extremity pain Neurologic: reports: Generalized weakness. denies: Focal weakness, Numbness, Difficulty speaking PD PAST MEDICAL HISTORY - Past Medical History Past Medical History: Yes Cardiovascular: Hypertension, [place] Respiratory: COPD Neuro: TIA Endocrine/Autoimmune: None GI: None : Renal insuffiency HEENT: None Psych: None Musculoskeletal: None Derm: None - Past Surgical History Past Surgical History: Yes General: Bowel surgery Ortho: Other HEENT: Tonsil/Adenoidectomy, Other - Present Medications Home Medications: Ambulatory Orders Medication Instructions Recorded Confirmed Chlorthalidone 50 mg PO DAILY 03/04/16 10/07/17 Lisinopril 40 mg PO DAILY 03/04/16 10/07/17 Amlodipine Besylate [Norvasc] 10 mg PO DAILY 04/28/17 10/07/17 Aspirin [Aspirin EC] 81 mg PO DAILY 04/28/17 09/14/19 Atorvastatin Calcium 40 mg PO QPM 04/28/17 09/14/19 Clonidine HCl [Catapres] 0.2 mg PO BID 04/28/17 10/07/17 Metoprolol Succinate [Toprol Xl] 50 mg PO BID 04/28/17 09/14/19 Torsemide 100 mg PO DAILY 09/14/19 Warfarin [Coumadin] 1 mg PO DAILY 09/14/19 09/14/19 - Allergies Allergies/Adverse Reactions: Allergies Allergy/AdvReac Type Severity Reaction Status Date / Time Sulfa (Sulfonamide Allergy Unknown UNKNOWN Verified 09/14/19 16:11 Antibiotics) - Social History Does the pt smoke?: Yes Smoking Status: Current every day smoker Does the pt drink ETOH?: Yes Does the pt have substance abuse?: No - Immunizations Immunizations are current?: No - POLST Patient has POLST: No POLST Status: Full Code PD ED PE NORMAL - Vitals Vital signs reviewed: Yes (hypertensive) - General General: No acute distress, Well developed/nourished - HEENT HEENT: Atraumatic, PERRL, EOMI - Neck Neck: Supple, no meningeal sign, No bony TTP - Cardiac Cardiac: No murmur, Other (tachy to 140) - Respiratory Respiratory: No respiratory distress, Clear bilaterally - Abdomen Abdomen: Soft, Non tender - Back Back: No CVA TTP, No spinal TTP, Other (There is an area over the left sac roillac region that is tender to the touch without fluctuance or mass palpable and without much overlying erythema) - Derm Derm: Normal color, Warm and dry, No rash - Extremities Extremities: No deformity, No edema - Neuro Neuro: Alert and oriented X 3, graining machine operator 2-12 intact, No motor deficit, No sensory deficit, Normal speech Eye Opening: Spontaneous Motor: Obeys Commands Verbal: Oriented GCS Score: 15 - Psych Psych: Normal mood, Normal affect Results - Vitals Vitals: Vital Signs - 24 hr 09/14/19 09/14/19 16:05 18:20 Temperature 36.1 C L Heart Rate 130 H Respiratory 16 25 H Rate Blood Pressure 132/82 H 117/83 H O2 Saturation 97 96 Oxygen O2 Source Nasal cannula - EKG (time done) 1615 Rate: Rate (enter#) (146) Rhythm: Sinus tachycardia (wtih irregular rate) Intervals: Prolonged QT QRS: LVH Compare to prior EKG: Changed from prior EKG (SPT 05-07-2017 rate has increased) Computer interpretation: Agree with computer - Labs Labs: Laboratory Tests 09/14/19 09/14/19 09/14/19 16:25 16:25 16:25 WBC 16.2 H RBC 2.53 L Hgb 7.8 L Hct 26.4 L MCV 104.3 H MCH 30.8 MCHC 29.5 L RDW 17.9 H Plt Count 307 MPV 9.3 Neut # (Auto) 14.0 H Lymph # (Auto) 0.7 L [place] # (Auto) 1.3 H Eos # (Auto) 0.0 Baso # (Auto) 0.1 Absolute Nucleated RBC 0.00 Nucleated RBC % 0.0 PT 50.0 H INR 4.8 H* Sodium 135 Potassium 4.6 Chloride 92 L Carbon Dioxide 20 L Anion Gap 23.0 H BUN 62 H Creatinine 7.7 H* Estimated GFR (MDRD) 7 L Glucose 109 H Calcium 8.8 Total Bilirubin 1.5 H AST 72 H ALT 24 Alkaline Phosphatase 75 Total Protein 7.1 Albumin 3.3 Globulin 3.8 Albumin/Globulin Ratio 0.9 L Lipase 24 Procedures - IVC sono (time) 1615 Bedside IVC sono: IVC measures (cm) (0.90), IVC collapsed c insp (cm) (complete), Dehydration (est 2 liter deficit) 1800 Bedside IVC sono: IVC measures (cm) (1.57), Euvolemia PD MEDICAL DECISION MAKING - ED course Complexity details: reviewed old records, reviewed results, re-evaluated patient, considered differential, d/w patient ED course: 69-year-old dialysis patient with profound weakness is found to be significantly dehydrated on interrogation the inferior vena cava and he is administered intravenous saline. He presents with a heart rate of 140 and the chief complaint that he is weak and has pain in his left buttocks. He has had 2 falls he states that he did hit his head and he is on Coumadin. He did not have any loss of consciousness he does not have any tenderness to his scalp. He is administered IV saline on liter and feels improved but continues to be tachy. His IVC is rechecked and he appears euvolemic now. His H&H are low. I consulted Dr. Bowman the computer console operator making machine catcher for Dr. Caruso and he recommends we transfuse on unit of rbc as his hemaglobin has dropped from 8.8 to 7.8 despite an addit ional dose of nupogen one month ago. His INR is elevated at 4.8. At shift change his care is turned over to Dr. Rosario.
[2019-09-14 16:54] LABS: BASOPHILS # (AUTO) 0.1 10^3/uL (0.0-0.1); BASOPHILS % (AUTO) 0.3 %; HGB - HEMOGLOBIN 7.8 g/dL (14.0-18.0); LYMPHOCYTES # (AUTO) 0.7 10^3/uL (1.5-3.5); LYMPHOCYTES % (AUTO) 4.3 %; MEAN CORPUSCULAR HEMOGLOBIN 30.8 pg (27.0-31.0); MEAN CORPUSCULAR HGB CONC 29.5 g/dL (32.0-36.0); MEAN CORPUSCULAR VOLUME 104.3 fL (80.0-94.0); MEAN PLATELET VOLUME 9.3 fL (7.4-11.4); MONOCYTES # (AUTO) 1.3 10^3/uL (0.0-1.0); NEUTROPHILS % (AUTO) 86.7 %; PLT - PLATELET COUNT 307 10^3/uL (130-450); RED BLOOD COUNT 2.53 10^6/uL (4.70-6.10); RED CELL DISTRIBUTION WIDTH 17.9 % (12.0-15.0); WHITE BLOOD COUNT 16.2 x10^3/uL (4.8-10.8)
[2019-09-14] MEDS ORDERED: ONDANSETRON 4 MG/2 ML VIAL IVP STA (16:58)
[2019-09-14] MEDS ORDERED: HYDROmorphone 1 MG/ML CARPUJECT IVP STA (16:58)
[2019-09-14 17:09] LABS: INR 4.8 (0.8-1.2)
--- NOTE | 2019-09-14 17:25 | CT Report ---
Reason: fall coumading left sided deficit Procedure Date: 09/14/2019 Accession Number: [id number] / [id number] Procedure: CT - HEAD WO CPT Code: Final Report FULL RESULT: EXAM: CT HEAD EXAM DATE: 09/14/2019 04:57 PM. CLINICAL HISTORY: Fall on Coumadin. Left sided deficit. COMPARISON: None. TECHNIQUE: Multiaxial CT images were obtained from the foramen magnum to the vertex. Reformats: Sagittal and coronal. IV contrast: None. In accordance with CT protocol optimization, one or more of the following dose reduction techniques were utilized for this exam: automated exposure control, adjustment of mA and/or KV based on patient size, or use of iterative reconstructive technique. FINDINGS: PARENCHYMA: No acute hemorrhage, transcortical infarction or mass. 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 There is also a old tiny left frontal infarct within the left paramedian frontal lobe. Periventricular and white matter hypointensities are nonspecific but most consistent with chronic microvascular ischemic changes. EXTRA-AXIAL SPACES: No extra-axial fluid collections. No midline shift. VENTRICLES/SULCI: Enlargement of the lateral and third ventricles with prominence of the cortical sulci consistent with mild cerebral volume loss. VASCULAR STRUCTURES: Arterial calcifications consistent with atherosclerosis. SINUSES: The visible paranasal sinuses and mastoid air cells are unremarkable. ORBITS: Unremarkable. BONES: No displaced acute calvarial fracture. OTHER: None. IMPRESSION: 1. No acute intracranial findings. 2. 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 3. Cerebral atrophy and chronic microvascular ischemic changes. RADIA
[2019-09-14 17:30] LABS: ALBUMIN 3.3 g/dL (3.2-5.5); ALBUMIN/GLOBULIN RATIO 0.9 (1.0-2.2); BILIRUBIN,TOTAL 1.5 mg/dL (0.2-1.0); CALCIUM 8.8 mg/dL (8.5-10.3); TOTAL PROTEIN 7.1 g/dL (6.7-8.2)
[2019-09-14 17:31] LABS: CREATININE 7.7 mg/dL (0.6-1.2)
[2019-09-14] MEDS ORDERED: METOPROLOL 5 MG/5 ML VIAL IVP STA (17:52)
[2019-09-14] MEDS ORDERED: diltiaZEM INJ 5 MG/ML VIAL IVP STA (19:03)
[2019-09-14 19:04] LABS: HGB - HEMOGLOBIN 6.9 g/dL (14.0-18.0)
[2019-09-14] MEDS ORDERED: PANTOPRAZOLE 40 MG VIAL IVP STA (19:14)
--- NOTE | 2019-09-14 19:14 | ED Physician Documentation ---
ED Addendum - Addendum Addendum: 09/14/19 19:[address] Aj. Briefly this is a 69-year-old gentleman who is anticoagulated. He does not know why. I mentioned irregular heart rate, it was not really familiar to him. Briefly had some presyncopal episodes and feeling very weak. He is noted to be tachycardic. Initial EKG read as sinus tachycardia, to my eye it looks more like atrial fibrillation. A second EKG was obtained. EKG reading, 1847, atrial fibrillation with rapid rate of 146, LVH and lateral ST depression. After this, he was given diltiazem IV. A second IV was placed. Blood was albeit ready being readied and I also ordered FFP presuming occult GI bleeding. Given these new findings call was placed to schedule hospital for transfer at 7:14 PM. 09/14/19 19:[address] Hurst, nephrology at [facility]. She agrees with the current plan of care, defers to hospitalist for admission. She did want to make one change, no FFP for now unless guaiac positive but she did want vitamin K. 09/14/19 19:[address] Chamberlain to [facility] at 1925. Cobras were co mpleted. He is somewhat stable for transfer and does need transfer to a higher level of care with nephrology inpatient. 09/14/19 19:26 Critical care time: 35 minutes of critical care time were personally delivered by me in patient care, documentation, ordering, and multiple consultations. Excluded from this is EKG interpretation. 09/14/19 19:30 Note made of troponin of 4038. This is probably multifactorial from rapid atrial fibrillation, anemia, renal failure. 09/14/19 19:44 Diagnoses: chronic renal failure, anemia/worsening, non-STEMI, rapid atrial fibrillation, supratherapeutic INR.
[2019-09-14] MEDS ORDERED: PHYTONADIONE INJ (ADULT) 10 MG in SODIUM CHLORIDE 0.9% 50 ML IV ONE (19:18)
[2019-09-14 19:40] VITALS: BP 110/78
== END 2019-09-14 20:11 | disposition short-term general hospital (02) ==
LOC: EDUNIT# → ED 16:02
DX: I12.0 Hypertensive chronic kidney disease with stage 5 chronic kidney disease or end stage renal disease (principal); N18.6 End stage renal disease; Z99.2 Dependence on renal dialysis; D64.9 Anemia, unspecified; E86.0 Dehydration; I21.4 Non-ST elevation (NSTEMI) myocardial infarction; I48.91 Unspecified atrial fibrillation; I45.81 Long QT syndrome; R79.1 Abnormal coagulation profile; M53.3 Sacrococcygeal disorders, not elsewhere classified; R51 Headache; Z91.81 History of falling; Z86.73 Personal history of transient ischemic attack (TIA), and cerebral infarction without residual deficits; Z79.01 Long term (current) use of anticoagulants; Z79.82 Long term (current) use of aspirin; J44.9 Chronic obstructive pulmonary disease, unspecified; F17.200 Nicotine dependence, unspecified, uncomplicated
CPT/HCPCS: 36415; 70450; 80053; 83690; 84484; 85014; 85018; 85025; 85610; 86850; 86900; 86901; 86920; 93005; 96361; 96374; 96375; 99285; 99291; J1170; J7040

== ENCOUNTER 2019-09-14 20:14 | Outpatient (CLI) | payer MEDICARE, MEDICAID | END 2019-09-14 20:15 | disposition short-term general hospital (02) | LOC: EMS 20:14 | PROVIDERS: ATTEND Surgery | DX: I21.4 Non-ST elevation (NSTEMI) myocardial infarction (principal); Z99.2 Dependence on renal dialysis | CPT/HCPCS: A0425; A0427 ==

== ENCOUNTER 2019-11-18 13:54 | Emergency (ER) | payer MEDICARE, MEDICAID ==
[2019-11-18 14:48] LABS: BASOPHILS # (AUTO) 0.1 10^3/uL (0.0-0.1); BASOPHILS % (AUTO) 1.1 %; EOSINOPHILS # (AUTO) 0.3 10^3/uL (0.0-0.7); EOSINOPHILS % (AUTO) 4.7 %; HGB - HEMOGLOBIN 11.7 g/dL (14.0-18.0); LYMPHOCYTES # (AUTO) 0.8 10^3/uL (1.5-3.5); LYMPHOCYTES % (AUTO) 10.9 %; MEAN CORPUSCULAR HEMOGLOBIN 31.8 pg (27.0-31.0); MEAN CORPUSCULAR HGB CONC 30.9 g/dL (32.0-36.0); MEAN PLATELET VOLUME 8.5 fL (7.4-11.4); MONOCYTES # (AUTO) 0.7 10^3/uL (0.0-1.0); MONOCYTES % (AUTO) 10.2 %; NEUTROPHILS # (AUTO) 5.1 10^3/uL (1.5-6.6); NEUTROPHILS % (AUTO) 72.7 %; PLT - PLATELET COUNT 196 10^3/uL (130-450); RED BLOOD COUNT 3.68 10^6/uL (4.70-6.10); RED CELL DISTRIBUTION WIDTH 15.2 % (12.0-15.0)
--- NOTE | 2019-11-18 14:51 | XRAY Report ---
Reason: Chest Pain Procedure Date: 11/18/2019 Accession Number: [id number] / [id number] Procedure: XR - Chest 1 View X-Ray CPT Code: 86540 Final Report FULL RESULT: EXAM: CHEST RADIOGRAPHY EXAM DATE: 11/18/2019 02:36 PM. CLINICAL HISTORY: Chest Pain. COMPARISON: CHEST 1 VIEW 04/28/2017 8:56 AM. TECHNIQUE: 1 view. FINDINGS: Lungs/Pleura: Central bronchial wall thickening is noted. No focal airspace consolidation. Possible small left base pleural effusion with blunting of the left costophrenic sulcus. No evidence for pneumothorax. Mediastinum: Stable heart size and mediastinum. Atherosclerotic plaque of the aortic arch. Other: Elevation of the left hemidiaphragm noted. IMPRESSION: 1. Central bronchial wall thickening could reflect underlying reactive airways or bronchitis. 2. No focal airspace consolidation. 3. Possible small left basal pleural effusion. RADIA
[2019-11-18 15:06] LABS: ALBUMIN 3.2 g/dL (3.2-5.5); ALBUMIN/GLOBULIN RATIO 0.9 (1.0-2.2); BILIRUBIN,TOTAL 0.7 mg/dL (0.2-1.0); CALCIUM 8.9 mg/dL (8.5-10.3); CREATININE 5.5 mg/dL (0.6-1.2); TOTAL PROTEIN 6.6 g/dL (6.7-8.2)
--- NOTE | 2019-11-18 15:29 | ED Physician Documentation ---
PD HPI DYSPNEA - Stated complaint Stated Complaint: SOA - Chief complaint Chief Complaint: Resp - History obtained from History obtained from: Patient, Family - History of Present Illness Timing - onset: Enter time (1300), Today Timing - onset during: Light activity Timing - duration: Hours Timing - details: Abrupt onset, Now resolved Inciting event(s): Exercise Improved by: Rest Worsened by: Exertion Associated symptoms: No: Fever, Cough, Wheezing, Diaphoresis, Bilateral edema Similar symptoms before: Diagnosis (CHF) Recently seen: Other - Additional information Additional information: 69-year-old male on chronic hemodialysis has been stable and being dialyzed and he has had some problems with some dizziness after dialysis and so they have decreased the amount of fluid they are taking off. They have changed his blood pressure medication. Today he went to his dialysis he finished the dialysis at 11 AM he went got a haircut and went out to lunch with his daughter. He got home and developed some shortness of breath. This is unusual for him and so he is come to the emergency department he has resolved his shortness of breath and feels normal now and wants to go home. Patient states that he does not usually go out to lunch after his dialysis. Review of Systems Constitutional: denies: Fever, Chills, Myalgias Eyes: denies: Decreased vision Ears: denies: Ear pain Nose: denies: Rhinorrhea / runny nose, Congestion Throat: denies: Sore throat Cardiac: denies: Chest pain / pressure, Palpitations Respiratory: reports: Dyspnea. denies: Cough, Wheezing GI: denies: Abdominal Pain, Nausea, Vomiting : denies: Dysuria, Frequency Skin: denies: Rash Musculoskeletal: denies: Neck pain, Back pain, Extremity pain Neurologic: denies: Generalized weakness, Focal weakness, Numbness PD PAST MEDICAL HISTORY - Past Medical History Past Medical History: Yes Cardiovascular: Hypertension, [place] Respiratory: COPD Neuro: TIA Endocrine/Autoimmune: None GI: None : Renal insuffiency HEENT: None Psych: None Musculoskeletal: None Derm: None - Past Surgical History Past Surgical History: Yes General: Bowel surgery Ortho: Other HEENT: Tonsil/Adenoidectomy, Other - Present Medications Home Medications: Ambulatory Orders Medication Instructions Recorded Confirmed Lisinopril 40 mg PO DAILY 03/04/16 11/18/19 Amlodipine Besylate [Norvasc] 10 mg PO DAILY 04/28/17 11/18/19 Aspirin [Aspirin EC] 81 mg PO DAILY 04/28/17 11/18/19 Atorvastatin Calcium 40 mg PO QPM 04/28/17 11/18/19 Metoprolol Succinate [Toprol Xl] 50 mg PO BID 04/28/17 11/18/19 Torsemide 100 mg PO DAILY 09/14/19 11/18/19 L.acid/L.casei/B.bif/B.dennise/Fos 1 cap PO DAILY 11/18/19 11/18/19 [Probiotic Blend Capsule] - Allergies Allergies/Adverse Reactions: Allergies Allergy/AdvReac Type Severity Reaction Status Date / Time Sulfa (Sulfonamide Allergy Unknown UNKNOWN Verified 11/18/19 14:06 Antibiotics) - Social History Does the pt smoke?: Yes Smoking Status: Current every day smoker Does the pt drink ETOH?: No Does the pt have substance abuse?: No - Immunizations Immunizations are current?: Yes - POLST Patient has POLST: No POLST Status: Full Code PD ED PE NORMAL - Vitals Vital signs reviewed: Yes (wide pulse pressure) - General General: Alert and oriented X 3, No acute distress, Well developed/nourished - HEENT HEENT: Atraumatic, PERRL, EOMI - Neck Neck: Supple, no meningeal sign, No bony TTP - Cardiac Cardiac: RRR, No murmur - Respiratory Respiratory: No respiratory distress, Other (fine crackles bilat) - Abdomen Abdomen: Soft, Non tender - Back Back: No CVA TTP, No spinal TTP - Derm Derm: Normal color, Warm and dry, No rash - Extremities Extremities: No deformity, No edema - Neuro Neuro: Alert and oriented X 3, equipment validation specialist 2-12 intact, No motor deficit, No sensory deficit, Normal speech Eye Opening: Spontaneous Motor: Obeys Commands Verbal: Oriented GCS Score: 15 - Psych Psych: Normal mood, Normal affect Results - Vitals Vitals: Vital Signs - 24 hr 11/18/19 11/18/19 14:01 15:39 Temperature 36.6 C 36.7 C Heart Rate 65 76 Respiratory 20 12 Rate Blood Pressure 109/53 L 119/70 O2 Saturation 97 97 Oxygen O2 Source Room air - Labs Labs: Laboratory Tests 11/18/19 11/18/19 11/18/19 14:40 14:40 14:40 WBC 7.0 RBC 3.68 L Hgb 11.7 L Hct 37.9 L MCV 103.0 H MCH 31.8 H MCHC 30.9 L RDW 15.2 H Plt Count 196 MPV 8.5 Neut # (Auto) 5.1 Lymph # (Auto) 0.8 L [place] # (Auto) 0.7 Eos # (Auto) 0.3 Baso # (Auto) 0.1 Absolute Nucleated RBC 0.00 Nucleated RBC % 0.0 Sodium 141 Potassium 3.7 Chloride 95 L Carbon Dioxide 33 H Anion Gap 13.0 BUN 33 H Creatinine 5.5 H Estimated GFR (MDRD) 10 L Glucose 80 Calcium 8.9 Total Bilirubin 0.7 AST 15 ALT 21 Alkaline Phosphatase 79 Troponin I High Sens 17.0 B-Natriuretic Peptide Total Protein 6.6 L Albumin 3.2 Globulin 3.4 Albumin/Globulin Ratio 0.9 L Lipase 25 11/18/19 14:40 WBC RBC Hgb Hct MCV MCH MCHC RDW Plt Count MPV Neut # (Auto) Lymph # (Auto) [place] # (Auto) Eos # (Auto) Baso # (Auto) Absolute Nucleated RBC Nucleated RBC % Sodium Potassium Chloride Carbon Dioxide Anion Gap BUN Creatinine Estimated GFR (MDRD) Glucose Calcium Total Bilirubin AST ALT Alkaline Phosphatase Troponin I High Sens B-Natriuretic Peptide 1050 H Total Protein Albumin Globulin Albumin/Globulin Ratio Lipase - Rads (name of study) CXR Radiology: Prelim report reviewed (Impression: 1. Central bronchial wall thickening could reflect underlying reactive airways or bronchitis. 2 No focal airspace consolidation.3 Possible small left basal pleural effusion.), EMP read indepedently, See rad report Procedures - IVC sono (time) 1500 Bedside IVC sono: IVC measures (cm) (2.26), High CVP PD MEDICAL DECISION MAKING - ED course Complexity details: reviewed old records, reviewed results, re-evaluated pat ient, considered differential, d/w patient, d/w family, d/w direct sales consultant (Case discussed with the patient's security police officer Dr. SCHUYLER Johnson. He will adjust the patient's dialysis on his next dialysis.) ED course: 69-year-old male on hemodialysis had dialysis today when out got a haircut had lunch with his daughter and became a bit more short of breath than usual. He has had his dialysis adjusted recently to take off less fluid because he was getting lightheaded. Today he presents into the emergency department and has had resolution of his symptoms of shortness of breath. He has a normal heart rate a blood pressure of 109/53 and a respiratory rate of 20. His oxygen saturation of 97%. His inferior vena cava measures 2.26 cm and is generous but does still have some collapse to it. His chest x-ray is well without evidence of fulminant pulmonary edema. BNP is elevated at 1050. The patient would like to go home. I have consulted his security police officer and he will make adjustments to the patient's dialysis. Departure - Departure Disposition: Home, Self Care Clinical Impression: Congestive heart failure Qualifiers: Heart failure type: unspecified Heart failure chronicity: acute on chronic Qualified Code(s): I50.9 - Heart failure, unspecified Condition: Stable Instructions: ED CHF General Follow-Up: Zohaib Castellano PA-C [Primary Care Provider] - Comments: Today it appears you have retained a bit more fluid than usual and the recommendation is to reduce your level of activity and follow-up with your dialysis as planned. Dr. Caruso will adjust your dialysis to accommodate. Discharge Date/Time: 11/18/19 15:40
[2019-11-18 15:39] VITALS: BP 119/70
== END 2019-11-18 15:40 | disposition home or self-care (01) ==
LOC: ED 13:54
DX: I11.0 Hypertensive heart disease with heart failure (principal); I50.9 Heart failure, unspecified; N28.9 Disorder of kidney and ureter, unspecified; Z99.2 Dependence on renal dialysis; I48.91 Unspecified atrial fibrillation; J44.9 Chronic obstructive pulmonary disease, unspecified; F17.200 Nicotine dependence, unspecified, uncomplicated; Z79.82 Long term (current) use of aspirin
CPT/HCPCS: 36415; 71045; 80053; 83690; 83880; 84484; 85025; 93005; 99284; 99285

== ENCOUNTER 2020-06-09 13:05 | Outpatient (CLI) | payer MEDICARE, MEDICAID ==
--- NOTE | 2020-06-09 16:20 | CONSULTATION NOTE ---
Palliative Care Consultation - Referral Referring Provider: Dr. Cooper Luo/Veronica Rios PA-C Time of Visit: [id number] Referral setting: Home Referral Reason: FTT/ESRD/Advanced Care Planning - Information Sources Records reviewed: Previous records reviewed History/Review of Systems obtained from: Patient, Caregiver (Naina) Exam limitations: No limitations - History of Present Illness Brief History of Present Illness: This is a 69-year-old male who is seen and evaluated today in his home for initial palliative care consultation with his friend/caregiver, Naina present due to failure to thrive, end-stage renal disease, and advanced care planning. The patient has had 3 separate primary malignancies in the form of adenocarcinoma. 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 He has had left renal cell carcinoma and underwent a left radical nephrectomy in May 2018. 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 He is presently only undergoing surveillance and monitoring status post these malignancies with Dr. Easley at [facility] oncology department. He is scheduled for a CT scan 07/21/2020 for monitoring. The patient has a prior history of poorly controlled hypertension and prior to initiating dialysis his systolic blood pressure was in the 200s. He is followed by cardiology due to his history of permanent atrial fibrillation and cardiomyopathy. He was previously on oral anticoagulation with warfarin but this was subsequently discontinued due to GI bleeding. Presently he is only on 81 mg of aspirin daily. The patient has a history of end-stage renal disease and has been on hemodialysis since July 2017. He attends dialysis Sunday, and Sunday. He takes the bus to the dialysis center. This is quite fatiguing for him as he has to ambulate up but will to get to the location of pickup. He is quite fatigued after his dialysis sessions. Due to in the past he was going to so many specialist his friend/caregiver Naina was not advocate for the patient with requesting medications to be managed from one source and therefore Dr. Caruso manages the patient's medications and prescriptions outside of his statin therapy. The patient had a recent hospitalization in August 2019 with A. fib with RVR and bacteremia. After that discharge home health services were initiated. The patient's friend/caregiver, Naina reports that the patient has become increasingly weak after physical therapy services were discontinued over the last several months. He is easily fatigued within his home and after ambulating from his bedroom to the living room he is typically staying on the living room couch for the majority of the day. He has fallen in the past and this is typically occurred when he has not had his life alert pendant on in order to easily call for lift assistance. His last fall was 04/30/2020 without injury. He is typically unable to get himself up without assistance due to his generalized weakness. The patient had developed shortness of breath with exertion and a chest x-ray was obtained demonstrating a moderately sized left pleural effusion. He underwent an outpatient left thoracentesis on February 25, 2020 and had 900 mL of fluid drained with a cytology negative for malignant cells. The patient reports that the thoracentesis was quite painful. He reports that after the thoracentesis he had improvement of his breathing but still felt short of breath. He then demonstrated appropriate need for supplemental oxygen and presently wears 2 L vasa nasal cannula which began in late spring 2019. Since that initiation patient no longer has to sleep propped up on a wedge pillow. In regards to his health, the patient's greatest concern is in order to get a shower. He finds that he is too weak to do independently. He has shower bench is in the bathroom but due to the tub these are not able to be easily utilized. The patient finds he is too weak to do an adequate job with a sponge bath. He and his caregiver/friend Naina have been discussing with his [employer] visual presentation manager cutting back her hours to supplement with a caregiver that would provide bathing services. 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 Caruso), Other (ESRD; Left renal cell carcinoma) HEENT: reports: None Psych: reports: None Musculoskeletal: reports: None Derm: reports: None MRSA Hx?: No - Past Surgical History General: reports: Bowel surgery (low anterior resection with temporary ileostomy on 09/27/[address] Saunders) Ortho: reports: Other HEENT: reports: Tonsil/Adenoidectomy, Other Other past surgical history: (1) Left horacentesis February 2020 drained 900mL of fluid, cytology negative for malignant cells. (2)Left radical nephrectomy 06/03/2018 Dr. Romero - Substance History Use: Uses substance without health or social issues: Tobacco (one pack per day former smoker) Social History - Living Situation Living arrangement: At home Living Situation: Alone Support System: The patient is . He has no children. He has no family in the area. He relocated to [facility] approximately 25 years ago. He was employed building airplanes. He works for multiple companies including [employer] for short time. The patient's friend/caregiver who is his healthcare agent, Naina has been with the patient for approximately 3 years and lives within the same [facility] as the patient. Naina is present typically 7 days a week for some context of time. Naina will deep clean the home when the patient is attending dialysis. He has another caregiver on the weekends. He has assistance through [employer] and his case planner is Deysi Morejon. Family History - Family History Family History: Mother: , Father: Family History Comment/Other: Father via myocardial infarction. Medications/Allergies - Medications Home Medications: Ambulatory Orders Medication Instructions Recorded Confirmed Aspirin [Aspirin EC] 81 mg PO DAILY 04/28/17 06/09/20 Atorvastatin Calcium 40 mg PO QPM 04/28/17 06/09/20 Torsemide 100 mg PO .TUESTHURSSAT 09/14/19 06/09/20 Calcium Carbonate [Tums (Calcium 3 tab PO TIDWM 06/09/20 06/09/20 Carbonate 500mg)] Docusate Sodium 100 mg PO DAILY 06/09/20 06/09/20 Lisinopril [Zestril] 2.5 mg PO QPM 06/09/20 06/09/20 Metoprolol Succinate [Toprol Xl] 100 mg PO .QAM 06/09/20 06/09/20 Metoprolol Succinate [Toprol Xl] 200 mg PO QPM 06/09/20 06/09/20 Midodrine HCl 1 tab PO .TUESTHURSSAT 06/09/20 06/09/20 Multivitamin 1 tab PO DAILY 06/09/20 06/09/20 oxyCODONE [Roxicodone] 5 mg PO Q4H PRN MDD severe pain 06/09/20 06/09/20 - Allergies Allergies/Adverse Reactions: Allergies Allergy/AdvReac Type Severity Reaction Status Date / Time Sulfa (Sulfonamide Allergy Unknown UNKNOWN Verified 06/09/20 17:01 Antibiotics) Review of Systems - Constitutional Constitutional: reports: Fatigue, Weight loss (30-40lb weight loss, gradual). denies: Fever - Eyes Eyes: reports: Corrective lenses - Ears, Nose & Throat Ears, Nose & Throat: reports: Hearing loss - Cardiovascular Cardiovascular: reports: Decr. exercise tolerance. denies: Palpitations, Chest pain - Respiratory Respiratory: reports: SOB with exertion. denies: Wheezing, SOB at rest - Gastrointestinal Gastrointestinal: reports: Constipation (controlled with colace), Early satiety. denies: Abdominal pain, Diarrhea, Nausea, Vomiting - Genitourinary Genitourinary: reports: Other (Anuric) - Musculoskeletal Musculoskeletal: reports: Assistive devices, Transfer issues. denies: Joint pain - Integumentary Integumentary: denies: Pruritis - Neurological Neurological: reports: General weakness. denies: Memory problems - Psychiatric Psychiatric: denies: Depression (denies SI and HI) - Endocrine Endocrine: denies: Hypothyroidism - Hematologic/Lymphatic Hematologic/Lymphatic: reports: Anemia - All Other Systems All Other Systems: reports: Reviewed and negative Physical Exam - Vital Signs Temperature: 36.4 C Pulse Rate: 88 O2 Saturation: 97 (on 2L via NC) Blood Pressure: 90/56 (right wrist cuff) - Physical Exam General Appearance: positive: No acute distress, Alert, Cachetic, Other (chroniclly ill appearing) Eyes Bilateral: positive: Other (+corrective lenses) ENT: positive: No signs of dehydration Neck: positive: Trachea midline, Other (thin) Cardiovascular: positive: No murmur, Irregularly irregular Respiratory: positive: No respiratory distress, Other (slightly diminished LLL, on supplemental oxygen) Abdomen: positive: Non-tender, Soft, Nml bowel sounds. negative: Distended Skin: positive: No symptoms Extremities: positive: No pedal edema, Other (moves all extremities with generalized weakness) Neurologic/Psychiatric: positive: Oriented x3, Weakness, Flat affect Palliative Care - POLST Patient has POLST: Yes POLST Status: DNR, Selective Treatment Pain: No pain Tiredness/Fatigue: Moderate (4-6) Nausea: None Anorexia: Mild (1-3) Dyspnea: Moderate (4-6) Depression: None Anxiety: None Constipation: Yes, Managed Performance Status: Patient is ambulatory with his Rollator. History of falls. Most meals are attended to by his caregivers through [employer]. Minimal urinary output and essentially an uric. Medications and pills are managed by his primary school child care attendant/healthcare agent, Naina. PPS 50% - Palliative Care Discussion: The patient has been unfortunate to have developed developed 3 separate primary malignancies of which are under surveillance and monitoring after treatment. The patient's caregiver/friend/healthcare agent, Naina who has been with the patient for the 3 years has noticed a significant decline especially in the last year to 6 months in regards to his function and overall health. His friend sees that he is beginning to give up. The patient himself however does not display the same mindset. He presently only has the support of his caregivers as he has no family locally. He does have a cousin but has not spoken to them in over 1 year. His days in detail typically being on his couch as he becomes easily fatigued. He is no longer getting up to fix himself meals while his caregivers are out of the home and is reliant upon their assistance. What is most bothersome to him is his inability to shower. He is looking to have assistance with this. His primary caregiver is reluctant to move forward given the disrepair of the bathroom floor as well as the shower chair being unable to configure in the bathtub and his high risk of falls. The patient had contacted [employer] for repairs regarding his home but has not followed through since the coronavirus. He does have a life dependent and is now beginning to be more diligent in wearing it after he required assistance after falls and he did not have access to his phone nor was he wearing his pendant. In the patient reflecting on his present health he reports he is "fine." He does relay that he has had a loss of strength and is easily fatigued. He has found the supplemental oxygen supportive and providing some relief of his symptoms. When further exploring in regards to his fatigue due to his dialysis and his multiple health conditions he reports "I do not have a choice." Impression and Recommendations - Palliative Care Impression: This is a frail 89-year-old male with a significant cardiac history of permanent atrial fibrillation, cardiomyopathy with a EF of 20 to 25%, 3 separate primary malignancies currently on surveillance and monitoring, end-stage renal disease on dialysis with failure to thrive. The patient does not perceive his overall health decline and deficits as does his caregiver/friend/healthcare agent. His primary goals her to improve his strength and have assistance with showering. Palliative care to continue to explore goals of care, establish rapport, provide symptom management and anticipatory guidance. Recommendations/Counseling Done: 1. LEONE due to cardiomyopathy and history of pleural effusion. Improved with supplemental oxygen and thoracentesis. Request home health PT and OT for fall prevention with safety evaluation as well as working on strengthening and energy conservation techniques. 2. Physical deconditioning with failure to thrive. Patient has had weight loss and decrease in his overall intake due to early satiety. He is unable to preform bathing independently. He is unable to ambulate long distances due to physical fatigue as well as LEONE. Multiple co-morbidities underlying that are contributing to his general decline in overall health. 3. Adenocarcinoma of rectal, renal cell, and lung. Followed by Dr. Easley with [facility] for monitoring and surveillance s/p intervention. 4. Cardiomyopathy, EF 20-25% 03/10/2020. Continue lisinopril daily as ordered. Continue torosmide and metalozone on dialysis days. On fluid restriction per nephrology. 5. Afib. history GI bleed on wafarin. On ASA therapy 81mg daily. On metoprolol for rate control. F/u with cardiology as scheduled. 6. ESRD. On dialysis since July 2017. Followed by Dr. Caruso who manages his medications. 7. Constipation. Sedentary lifestyle contributing. Improved with intitation of colace 100mg daily and would continue at present time. If additional management needed would implement miralax. 8. Advanced care planning. Patient has POLST in place as DN AR with limited interventions. He has a designated healthcare agent as his friend/caregiver, Naina. The patient himself does not appear to recognize His overall poor physical health and is quite fixated on being able to get stronger, and have assistance with bathing, and have repairs performed on his home. There is a large concern regarding the eroding dhiraj in his bathroom. Implored the patient and his caregiver to contact [employer] for potential repairs. Provided contact information. We will also request home health metal casting trades worker to assist with further long-term planning in regards to caregiving assistance and tapped into community resources for assurance of the patient's home safety. We will continue to explore goals of care with the patient and provide support. FACE to FACE: He would be a taxing and considerable effort for the patient to leave his home. Request home health physical therapy and occupational therapy for fall prevention with safety evaluation, strengthening and energy conservation techniques. Patient would benefit from metal casting trades worker for assistance with community services to improve the safety of his home structure. Request bath aide as patient is unable to bathe independently due to his underlying multiple co-morbidities. Time Spent: Total time spent 75 minutes with greater than 50% of this spent in counseling and coordination of care with patient and friend/caregiver/DPXANDER Chew; review of palliative philosophy and services; examination of patient;symptom management and anticipatory guidance. CPT 62756 I spent 35 minutes today reviewing the patient's prior consultation reports and records prior to the visit. Disclaimer: The chart note was formulated using voice recognition technology and unfortunately sound alike errors may occur.
== END 2020-06-09 13:06 | disposition home or self-care (01) ==
LOC: PC 13:05
PROVIDERS: ATTEND Nurse Practitioner Family
DX: Z51.5 Encounter for palliative care (principal); R53.1 Weakness; R53.83 Other fatigue; I13.11 Hypertensive heart and chronic kidney disease without heart failure, with stage 5 chronic kidney disease, or end stage renal disease; N18.6 End stage renal disease; I42.9 Cardiomyopathy, unspecified; I48.21 Permanent atrial fibrillation; R62.7 Adult failure to thrive; R63.4 Abnormal weight loss; R68.81 Early satiety; K59.00 Constipation, unspecified; C34.11 Malignant neoplasm of upper lobe, right bronchus or lung; C20 Malignant neoplasm of rectum; C64.9 Malignant neoplasm of unspecified kidney, except renal pelvis; Z79.82 Long term (current) use of aspirin; Z79.899 Other long term (current) drug therapy; Z90.5 Acquired absence of kidney; Z74.09 Other reduced mobility; Z99.81 Dependence on supplemental oxygen; Z74.1 Need for assistance with personal care; Z59.8 Other problems related to housing and economic circumstances; Z99.2 Dependence on renal dialysis; Z91.81 History of falling; Z92.3 Personal history of irradiation; Z86.19 Personal history of other infectious and parasitic diseases; Z87.09 Personal history of other diseases of the respiratory system; Z66 Do not resuscitate
CPT/HCPCS: 99345; 99358

== ENCOUNTER 2020-07-07 13:00 | Outpatient (CLI) | payer MEDICARE, MEDICAID ==
--- NOTE | 2020-07-07 17:48 | CONSULTATION NOTE ---
Palliative Care Follow Up - Referral Referring Provider: Dr. Cooper Luo/Veronica Rios PA-C Time of Visit: [id number] Referral setting: Home Referral Reason: ESRD/Deconditioning - Information Sources Records reviewed: Previous records reviewed History/Review of Systems obtained from: Patient Exam limitations: No limitations - History of Present Illness Update Brief HPI Update: This is a 62-year-old male who is seen in follow-up today due to end-stage renal disease on hemodialysis and physical deconditioning. Please see detailed history dictated on 06/09/2024 for details. The patient has a history of end-stage renal disease and has been on hemodialysis since July 2017. He attends dialysis Sunday, and Sunday. He takes the bus to the dialysis center and is quite fatiguing for him. Dr. Caruso is his board lining machine operator and manages all of his medications outside of his statin therapy. The patient has begun working with home health services. He finds that he becomes quite fatigued working with physical therapy. He is desiring to have increased energy through the work of energy conservation to be able to not become as easily fatigued. Today, he had the home health aide present where he had a shower. He states that it felt so good to feel clean and he was then motivated to have his haircut today one in the past he has felt too fatigued to go to the jon to have a haircut. The patient reports that and in pitting factor for his ability to provide some care for himself including bathing is that he is unable to stand for long periods of time as he begins to have pain in his lower back. As soon as he sits down this is easily resolved. He is quite adamant that he continues to desire assistance with bathing and wants the home health aide is no longer available for attendance he does wish to have an additional caregiver within the home to provide assistance which his friend/caregiver/Naina HER is agreeable and open to. The patient himself today reports that he is feeling pretty good. He does report that he is quite fatigued after multiple outings and events today. Past medical history includes hypertension, hyperlipidemia, coronary artery disease, [place], atrial fibrillation, cardiomyopathy with EF 20 to 25% on echo 02/2020, moderate left pleural effusion 2019 GI bleed, C. difficile June 2018, moderately differentiated adenocarcinoma of the rectum, left renal cell carcinoma, left nephrectomy 2017, left thoracentesis February 2020- negative for malignant cells, lung adenocarcinoma status post SBRT, end-stage renal disease on dialysis Sunday, , Sunday. Social History - Living Situation Living arrangement: At home Living Situation: Alone Support System: He is . Has no children. Has no family in the area. His sister in 2016. He worked for multiple companies including [employer]. 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 The patient's friend/caregiver who is his healthcare agent, Naina has been with the patient for approximately 3 years and lives in the same [place] as the patient. She typically is present 7 days a week for some context of time. Naina and the patient have known each other for approximately 17 years. The patient has another caregiver on the weekends but this individual is unable to provide showering. He has assistance through [employer] and his machine adjuster leader case trim is Deysi Morejon. Medications/Allergies - Medications Home Medications: Ambulatory Orders Medication Instructions Recorded Confirmed Aspirin [Aspirin EC] 81 mg PO DAILY 04/28/17 06/09/20 Atorvastatin Calcium 40 mg PO QPM 04/28/17 06/09/20 Torsemide 100 mg PO .TUESTHURSSAT 09/14/19 06/09/20 Calcium Carbonate [Tums (Calcium 3 tab PO TIDWM 06/09/20 06/09/20 Carbonate 500mg)] Docusate Sodium 100 mg PO DAILY 06/09/20 06/09/20 Lisinopril [Zestril] 2.5 mg PO QPM 06/09/20 06/09/20 Metoprolol Succinate [Toprol Xl] 100 mg PO .QAM 06/09/20 06/09/20 Metoprolol Succinate [Toprol Xl] 200 mg PO QPM 06/09/20 06/09/20 Midodrine HCl 1 tab PO .TUESTHURSSAT 06/09/20 06/09/20 Multivitamin 1 tab PO DAILY 06/09/20 06/09/20 oxyCODONE [Roxicodone] 5 mg PO Q4H PRN MDD severe pain 06/09/20 06/09/20 Melatonin 5 mg PO QPM 07/08/20 07/08/20 - Allergies Allergies/Adverse Reactions: Allergies Allergy/AdvReac Type Severity Reaction Status Date / Time Sulfa (Sulfonamide Allergy Unknown UNKNOWN Verified 06/09/20 17:01 Antibiotics) Review of Systems - Constitutional Constitutional: reports: Fatigue, Poor appetite, Weight loss (stablized weight loss that had been gradual) - Eyes Eyes: reports: Corrective lenses - Ears, Nose & Throat Ears, Nose & Throat: reports: Hearing loss - Cardiovascular Cardiovascular: denies: Chest pain, Edema - Respiratory Respiratory: reports: SOB with exertion. denies: Cough - Gastrointestinal Gastrointestinal: denies: Constipation, Diarrhea, Vomiting - Genitourinary Genitourinary: reports: Other (Anuric) - Musculoskeletal Musculoskeletal: reports: Back pain (if standing for long periods of time, see HPI for full details), Assistive devices. denies: Joint pain - Integumentary Integumentary: reports: Dryness - Neurological Neurological: reports: General weakness - Psychiatric Psychiatric: denies: Depression - Endocrine Endocrine: denies: Hypothyroidism - All Other Systems All Other Systems: reports: Reviewed and negative Physical Exam - Vital Signs Temperature: 36.8 C Pulse Rate: 105 Respiratory Rate: 17 O2 Saturation: 97 (on 2L via NC) Blood Pressure: 95/57 (left wrist cuff) - Physical Exam General Appearance: positive: No acute distress, Alert, Cachetic, Other (chroniclly ill appearing, well groomed) Eyes Bilateral: positive: Other (+corrective lenses) ENT: positive: No signs of dehydration Neck: positive: Trachea midline, Other (thin) Cardiovascular: positive: No murmur, Irregularly irregular Respiratory: positive: No respiratory distress, Rales (trace RLL), Other ( on supplemental oxygen) Abdomen: positive: Non-tender, Soft, Nml bowel sounds Skin: positive: Dryness Extremities: positive: No pedal edema, Other (generalized weakness) Neurologic/Psychiatric: positive: Oriented x3, Weakness, Flat affect Palliative Care - POLST Patient has POLST: Yes POLST Status: DNR, Selective Treatment Pain: Comment (pain to lower back if standing for long periods of time, see HPI) Anorexia: Mild (1-3) Dyspnea: Moderate (4-6) Depression: None Anxiety: None Sleep: Variable sleep pattern Constipation: Yes, Managed Performance Status: Patient is ambulatory with his Rollator. History of falls. Most meals are attended to by his caregivers through [employer]. He does consume snack packs on his own. Medications are managed by his primary caregiver/healthcare agent, Naina. Requires assistance with bathing. PPS 50% - Palliative Care Discussion: The patient himself reports that he overall feels "pretty good." His biggest concern at the present time is to ensure that he continues to have assistance once the home health aide leaves the home for showering. Due to his longstanding friendship with his primary caregiver/healthcare agent Naina they wish to delineate that aspect of that caregiving at this time. Naina is open to reaching out to the patient's [employer] machine adjuster leader case trim, Deysi to discuss a reduction in her hours to potentially supplement for a caregiver that would strictly come into the home on a weekly basis to assist with showering as once this is performed this uplifts the patient's spirits. Home health manager social work reports that the patient is on the list for [employer] for repairs within his home. He also has a pendant for contact for assistance given his history of falls. The patient typically spends his days on the couch and is easily fatigued. His friends/caregiver/healthcare agent, Naina reports that she feels as if the patient is not partaking in his life. She has seen in the past that he has had ebbs and flows with his mood with evidence of depression with the patient always denying this. Naina denies that he has been on any medication for depression in the past. The patient did reflect today that he went out last began with Naina and additional friends to celebrate his birthday. This was quite an enjoyable of event and he was jovial in recollection. The patient did open up today that upon his initial cancer diagnosis in 2017 his cancer his sister was also diagnosed with cancer. It was believed at the time that he would be the one to not survive his cancer and the treatment but ultimat pritesh his sister 6 months later from her disease. He was unable to spend adequate time with his sister during those last six months because he was quite ill as well. Impression and Recommendations - Palliative Care Impression: This is a frail 70-year-old male with significant cardiac history of atrial fibrillation, cardiomyopathy with EF of 20 to 25%, 3 separate primary malignancies on surveillance, end-stage renal disease on dialysis, and physical deconditioning. The patient himself is going through the daily grind of living but his friend/caregiver/healthcare agent perceives that he may have some underlying depression. The patient himself wishes to improve his strength to limit his overall fatigue and is presently working with home health physical therapy and has home health social work and aide for additional support. Palliative care to continue to explore goals of care, establish rapport, and provide symptom management and anticipatory guidance. Recommendations/Counseling Done: 1. Dyspnea on exertion due to cardiomyopathy and history of pleural effusion. Improved with supplemental oxygen and thoracentesis in 2020. Patient currently supported by home health physical therapy with the goal to improve functional status, safety and energy conservation techniques. 2. Physical deconditioning. Multifactorial due to multiple comorbidities. Has been unable to perform bathing independently due to lower back pain with prolonged standing. Presently supported by home health aide. Patient is extremely vocal and his desire to continue to have bathing assistance. His friend/caregiver/healthcare agent, Naina to contact the patient's [employer] machine adjuster leader case trim to find an additional caregiver with the structural fold to provide bathing assistance when the home health aide is out of the home.Continue to work with home health physical therapy for strengthening. 3. Insomnia. Long standing. Continue melatonin 5mg nightly. Encourgaged to take 1 hour prior to bedtime. Encouraged to avoid TV and electronics 1 hour prior to bed to promote sleep. Avoid napping for over 20-25minutes at a time throughout the day. 4. Advance care planning. Patient has POLST in place is DNR with limited interventions. The patient reflected today that both he and his sister were diagnosed with cancer at the same time and she subsequently due to her disease. There is potentially some underlying survivors guilt that the patient may have not addressed. We will continue to explore these underlying feelings moving forward and subsequent follow-up. We will continue to encourage the patient to perform tasks that he is able to independently and continue to assess his mood for underlying depression and need and his openness for treatment if demonstrated. Patient is on the hearts and h[employer] list for home repairs per the home health manager social work. We will continue to build rapport, explore goals of care with the patient and provide support. Time Spent: Total time spent 40 minutes with greater than 50% of this spent in counseling and coordination of care, review of symptom management and anticipatory guidance. Disclaimer: The chart note was formulated using voice recognition technology and unfortunately sound alike errors may occur.
== END 2020-07-07 13:01 | disposition home or self-care (01) ==
LOC: PC 13:00
PROVIDERS: ATTEND Nurse Practitioner Family
DX: Z51.5 Encounter for palliative care (principal); I13.11 Hypertensive heart and chronic kidney disease without heart failure, with stage 5 chronic kidney disease, or end stage renal disease; N18.6 End stage renal disease; I42.9 Cardiomyopathy, unspecified; G47.00 Insomnia, unspecified; Z91.81 History of falling; Z99.81 Dependence on supplemental oxygen; Z99.2 Dependence on renal dialysis; Z85.048 Personal history of other malignant neoplasm of rectum, rectosigmoid junction, and anus; Z85.528 Personal history of other malignant neoplasm of kidney; Z85.118 Personal history of other malignant neoplasm of bronchus and lung; Z66 Do not resuscitate
CPT/HCPCS: 99349

== ENCOUNTER 2020-09-01 13:15 | Outpatient (CLI) | payer MEDICARE, MEDICAID ==
--- NOTE | 2020-09-01 17:21 | CONSULTATION NOTE ---
Palliative Care Follow Up - Referral Referring Provider: Dr. Cooper Luo Time of Visit: [id number] Referral setting: Home Referral Reason: ESRD/Diarrhea - Information Sources Records reviewed: Previous records reviewed History/Review of Systems obtained from: Patient Exam limitations: No limitations - History of Present Illness Update Brief HPI Update: This is a 70-year-old male was seen in follow-up today due to end-stage renal disease on hemodialysis and reports of acute diarrhea. Please see detailed history dictated on 06/09/2020 For details. The patient reports fatigue today and 4 episodes of defecation that was soft in nature that then progressed to more liquid formation. The patient denies any blood in his stool. He does not have any nausea or vomiting. He denies fever or chills. He took Pepto-Bismol [id number] and is feeling improved. The patient is presently working with home health services. He has been working with home health physical therapy but does report that he is not always consistent about doing his home exercises As prescribed due to his underlying fatigue. He refused to have the home health aide to assist with showering due to his present fatigue. He denies any falls. He continues to attend dialysis Sunday, , and Sunday. Dr. Johnson is his director mobile media solutions and manages all of his medications outside of his statin therapy. He has been on hemodialysis since July 2017. The patient reports that he does nothing outside of attend dialysis and otherwise sits On his couch watching TV. He reports a recent follow-up with his oncologist with continued routine monitoring with a follow-up in 6 months. The patient is seen dressed in sweat clothes sitting on his couch with supplemental oxygen in place and appears fatigued. Patient denies changes to his medications upon review. Past Medical History: Past medical history includes hypertension, hyperlipidemia, coronary artery disease, [place], atrial fibrillation, cardiomyopathy with EF 20 to 25% on echo 02/2020, moderate left pleural effusion 2019 GI bleed, C. difficile June 2018, moderately differentiated adenocarcinoma of the rectum, left renal cell carcinoma, left nephrectomy 2017, left thoracentesis February 2020- negative for malignant cells, lung adenocarcinoma status post SBRT, end-stage renal disease on dialysis Sunday, , Sunday. Social History - Living Situation Living arrangement: At home Living Situation: Alone Support System: He is and has no children. He has no family in the area. His sister in 2017 from cancer. He has worked for multiple companies including [employer]. 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 He is estranged from his brother reporting that they "do not talk." He has assistance through [employer] and his mattress spring encaser is Deysi Morejon. The patient does express frustration that the rent for his trailer home is going up and is considering again to be placed on a waiting list for low income housing. Medications/Allergies - Medications Home Medications: Ambulatory Orders Medication Instructions Recorded Confirmed Aspirin [Aspirin EC] 81 mg PO DAILY 04/28/17 06/09/20 Atorvastatin Calcium 40 mg PO QPM 04/28/17 06/09/20 Torsemide 100 mg PO .ESTHURSSAT 09/14/19 06/09/20 Calcium Carbonate [Tums (Calcium 3 tab PO TIDWM 06/09/20 06/09/20 Carbonate 500mg)] Docusate Sodium 100 mg PO DAILY 06/09/20 06/09/20 Lisinopril [Zestril] 2.5 mg PO QPM 06/09/20 06/09/20 Metoprolol Succinate [Toprol Xl] 100 mg PO .QAM 06/09/20 06/09/20 Metoprolol Succinate [Toprol Xl] 200 mg PO QPM 06/09/20 06/09/20 Midodrine HCl 1 tab PO .ESTHURSSAT 06/09/20 06/09/20 Multivitamin 1 tab PO DAILY 06/09/20 06/09/20 oxyCODONE [Roxicodone] 5 mg PO Q4H PRN MDD severe pain 06/09/20 06/09/20 Melatonin 5 mg PO QPM 07/08/20 07/08/20 - Allergies Allergies/Adverse Reactions: Allergies Allergy/AdvReac Type Severity Reaction Status Date / Time Sulfa (Sulfonamide Allergy Unknown UNKNOWN Verified 06/09/20 17:01 Antibiotics) Review of Systems - Constitutional Constitutional: reports: Fatigue, Poor appetite - Eyes Eyes: reports: Corrective lenses - Ears, Nose & Throat Ears, Nose & Throat: reports: Hearing loss. denies: Dry mouth - Cardiovascular Cardiovascular: denies: Chest pain, Edema, Lightheadedness - Respiratory Respiratory: reports: SOB with exertion, Other (on supplemental oxygen). denies: Cough - Gastrointestinal Gastrointestinal: reports: Diarrhea. denies: Rectal bleeding, Black stools, Nausea, Vomiting - Genitourinary Genitourinary: reports: Other (Anuric) - Musculoskeletal Musculoskeletal: reports: Assistive devices, Transfer issues - Integumentary Integumentary: reports: Dryness - Neurological Neurological: reports: General weakness - Psychiatric Psychiatric: denies: Depression - Endocrine Endocrine: denies: Diabetes type 2 - All Other Systems All Other Systems: reports: Reviewed and negative Physical Exam - Vital Signs Temperature: 36.9 C Pulse Rate: 90 O2 Saturation: 98 (on 2L via NC) Blood Pressure: 97/47 (left wrist cuff) - Physical Exam General Appearance: positive: No acute distress, Alert, Cachetic, Other (chroniclly ill appearing, well groomed, appears fatigued) Eyes Bilateral: positive: Other (+corrective lenses) ENT: positive: No signs of dehydration Neck: positive: Trachea midline, Other (thin) Cardiovascular: positive: No murmur, Irregularly irregular Respiratory: positive: No respiratory distress, Breath sounds nml, Other ( on supplemental oxygen). negative: Wheezes Abdomen: positive: Non-tender, Soft, Nml bowel sounds. negative: Guarding, Distended Skin: positive: Dryness Extremities: positive: No pedal edema, Other (generalized weakness) Neurologic/Psychiatric: positive: Oriented x3, Weakness, Flat affect Palliative Care - POLST Patient has POLST: Yes POLST Status: DNR, Selective Treatment Pain: Comment ( chronic to lower back if standing for long periods of tie) Tiredness/Fatigue: Moderate (4-6) Drowsiness/Sedation: None Nausea: None Anorexia: Moderate (4-6) Dyspnea: Moderate (4-6) Depression: None Anxiety: None Sleep: Variable sleep pattern Constipation: Managed Performance Status: Patient is ambulatory with his Rollator with a history of falls. No falls recently. Most meals are attended to by his caregivers through [employer]. He does consumeSnacks on his own. Medications are managed by his primary caregiver/healthcare agent, Naina. Requires assistance with bathing. PPS 50% - Palliative Care Discussion: The patient continues to display a depressive mood and denies underlying symptoms of depression. He reports that he is lonely and when conversing with this PHOTO MASK PROCESSOR today states that he is out of practice in having conversations. He does not speak to anyone during his sessions. He has no family in the area. He does rely on his caregiver/friend/DPOA, Naina who will "get anything I ask." However, this does not feel devoid of companionship. Offer palliative care dance hall host/hostess for support but the patient declines. Teasing out some of his feelings further as he mentions he and his sister were both diagnosed with cancer in 2017 however, she subsequently from her illness 6 months later while he lived. He and his sister were close. The patient states that he is not angry about not dying 3 years ago. His biggest concern is to be able to shower at least on a weekly basis. He and his primary caregiver/DPOA Naina are looking into options for the patient when he no longer has access to the healthcare aide from home health services. Impression and Recommendations - Palliative Care Impression: This is a frail 70-year-old male with significant cardiac history of atrial fibrillation, cardiomyopathy, 3 separate primary malignancies on surveillance, end-stage renal disease on dialysis, and evidence of underlying depression. The patient continues to go through the daily Motions of life and relays that he "does nothing except go to dialysis." He continues to deny depressive symptoms. He continues to work with home health physical therapy for strengthening due to generalized weakness. Today, he has acute diarrhea that has subsequently resolved. No evidence of an infectious process. Palliative care to continue to explore goals of care, establish rapport, and provide symptom management and anticipatory guidance. Recommendations/Counseling Done: 1.Diarrhea, acute. Resolved. Afebrile and without hematochezia. Encourage adequate hydration and frequent handwashing. Reviewed signs and symptoms to report to the emergency department such as hematochezia with understanding verbalized. F/u with PCP if persistent symptoms. 2. Apathy. Patient displays apathy and depressive symptoms however, denies depression. He has not been on antidepressant medications in the past. His apathy is multifactioral with limited interactions with others due to coronavirus, estrangement from family and debility preventing him from par ticipating in outings. Recommended palliative care dance hall host/hostess as a resource to decrease social isolation however, the patient did. Patient would benefit from continued support and exploration regarding goals of care. Presently, he reports that he is fine but lonely. Continue to provide support. 3.End-stage renal disease. He has been on dialysis since July 2017. Followed by Dr. Johnson who manages his medications. 4. Advanced care planning. Patient has POLST in place as DN AR with limited interventions. His friend/caregiver, Naina is his designated healthcare agent. The patient brought up again today the loss of his sister who was diagnosed with cancer at the same time as him, but she 6 months after her diagnosis while he lived. In exploring further with the patient's underlying feelings he is not resentful that he did not 3 years ago. The patient is frustrated with the medical system and providers not being forthright in her assessments and prognosis. We will continue to build rapport and explore goals of care with the patient moving forward and provide continued support. Time Spent: F/u Oct 2020 via phone for clinical status update and if Palliative Services are needed moving forward at that time. Total time spent 35 minutes with greater than 50% of this spent in counseling and coordination of care with the patient, review of pain and symptom management and anticipatory guidance. Disclaimer: The chart note was formulated using voice recognition technology and unfortunately sound alike errors may occur.
== END 2020-09-01 13:16 | disposition home or self-care (01) ==
LOC: PC 13:15
PROVIDERS: ATTEND Nurse Practitioner Family
DX: Z51.5 Encounter for palliative care (principal); N18.6 End stage renal disease; I12.0 Hypertensive chronic kidney disease with stage 5 chronic kidney disease or end stage renal disease; I48.91 Unspecified atrial fibrillation; Z99.2 Dependence on renal dialysis; Z99.81 Dependence on supplemental oxygen; Z66 Do not resuscitate
CPT/HCPCS: 99348

== ENCOUNTER 2020-12-01 17:15 | Outpatient (CLI) | payer MEDICARE, MEDICAID | END 2020-12-01 17:16 | disposition short-term general hospital (02) | LOC: EMS 17:15 | DX: R53.81 Other malaise (principal); R06.09 Other forms of dyspnea | CPT/HCPCS: A0425; A0429 ==

== ENCOUNTER 2020-12-22 12:30 | Outpatient (CLI) | payer MEDICARE, MEDICAID ==
--- NOTE | 2020-12-22 13:27 | CONSULTATION NOTE ---
Palliative Care Follow Up - Referral Referring Provider: Dr. Cooper Luo Time of Visit: [id number] Referral setting: Home Referral Reason: ESRD/Advanced Care Planning - Information Sources Records reviewed: RN notes reviewed History/Review of Systems obtained from: Patient, Caregiver (Naina) - History of Present Illness Update Brief HPI Update: This is a 70-year-old male was seen in follow-up today due to end-stage renal disease on hemodialysis and advanced care planning after recent hospitalization for hyperkalemia. Patient was admitted to [facility] 12/01-12/05/2020 for shortness of breath and hyperkalmeia. Potassium level was a high of 7.1 on admission that was believed to be diet related and resolved with dialysis and lokelma administration. The patient enjoys potatoes and cheese and these preferences have been reduced since discharge from the hospital. He also had his lisinopril discontinued and was started on calcium acetate with meals as he did not take the tums consistently with meals as a binding agent. He had afib with RVR on admission that resolved s/p IV diltiazem and was placed back on his home metoprolol and diltiazem. He continues to attend dialysis Sunday, , and Sunday. Dr. Caruso is his cia agent and manages all of his medications outside of his statin therapy. He has been on hemodialysis since July 2017. The patient reports that he does nothing outside of attend dialysis and otherwise sits On his couch watching TV. He recently purchases a smart TV and computer and admits to not knowing how to use these items well. He becomes extremely fatigued leaving his home to catch the [employer] bus to attend dialysis and his secondary caregiver, Laure has been taking him in her car once a week that has helped with his fatigued. He also does not always wear his supplemental oxygen if he feels he "doesn't need it." The patient has had 3 separate primary malignancies in the form of adenocarcinoma. 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 He has had left renal cell carcinoma and underwent a left radical nephrectomy in May 2018. 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 He is presently only undergoing surveillance and monitoring status post these malignancies with Dr. Easley at [facility] oncology department. He is scheduled for a CT scan 01/[address] Easley in January 2021 for follow-up The patient has a prior history of poorly controlled hypertension and prior to initiating dialysis his systolic blood pressure was in the 200s. He is followed by cardiology due to his history of permanent atrial fibrillation and cardiomyopathy. He was previously on oral anticoagulation with warfarin but this was subsequently discontinued due to GI bleeding. Presently he is only on 81 mg of aspirin daily. He continues to express his greatest desire to have assistance with bathing. A latter-day member for a local latter-day redid the patient's bathroom and he now has a shower vs a tub but the job is not fully completed. His friend/caregiver, Naina is unable to provide more physical care needs and has requested that someone from caregiving agency more suited for providing these needs be found. The patient and Naina plan to continue their friendship and for Naina to act as the patient's DPOA. The patient is seen dressed in sweat clothes sitting on his lift chair with supplemental oxygen in place and appears fatigued. Past Medical History: Past medical history includes hypertension, hyperlipidemia, coronary artery disease, [place], atrial fibrillation, cardiomyopathy with EF 20 to 25% on echo 02/2020, moderate left pleural effusion 2019 GI bleed, C. difficile June 2018, moderately differentiated adenocarcinoma of the rectum, left renal cell carcinoma, left nephrectomy 2017, left thoracentesis February 2020- negative for malignant cells, lung adenocarcinoma status post SBRT, end-stage renal disease on dialysis Sunday, , Sunday. Social History - Living Situation Living arrangement: At home Living Situation: Alone Support System: He is and has no children. He has no family in the area. His sister in 2017 from cancer. He has worked for multiple companies including [employer]. 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 He is estranged from his brother. His friend/caregiver, Naina is his DPOA. He has assistance through [employer] and his rifle case repairer is Deysi Morejon. He has 115 hours through [employer] that is split between Naina and Laure, presently. Some repairs were done to his bathroom making it safer but the entire reconstruction was not completed per patient and caregiver's report. Medications/Allergies - Medications Home Medications: Ambulatory Orders Medication Instructions Recorded Confirmed Aspirin [Aspirin EC] 81 mg PO DAILY 04/28/17 06/09/20 Atorvastatin Calcium 40 mg PO QPM 04/28/17 06/09/20 Torsemide 100 mg PO .ESTHURSSAT 09/14/19 06/09/20 Docusate Sodium 100 mg PO DAILY 06/09/20 06/09/20 Metoprolol Succinate [Toprol Xl] 100 mg PO .QAM 06/09/20 06/09/20 Metoprolol Succinate [Toprol Xl] 200 mg PO QPM 06/09/20 06/09/20 Midodrine HCl 1 tab PO .SAT 06/09/20 06/09/20 Multivitamin 1 tab PO DAILY 06/09/20 06/09/20 oxyCODONE [Roxicodone] 5 mg PO Q4H PRN MDD severe pain 06/09/20 06/09/20 Melatonin 5 mg PO QPM 07/08/20 07/08/20 Calcium Acetate [Phoslo] 1 cap PO TIDWM 12/22/20 12/22/20 Cartia Xt 360 mg PO HS 12/22/20 - Allergies Allergies/Adverse Reactions: Allergies Allergy/AdvReac Type Severity Reaction Status Date / Time Sulfa (Sulfonamide Allergy Unknown UNKNOWN Verified 12/22/20 13:41 Antibiotics) Review of Systems - Constitutional Constitutional: reports: Fatigue, Weight stable (no loss or gain reported). denies: Fever - Eyes Eyes: reports: Corrective lenses. denies: Irritation - Ears, Nose & Throat Ears, Nose & Throat: reports: Hearing loss. denies: Hearing aids - Cardiovascular Cardiovascular: reports: Decr. exercise tolerance. denies: Palpitations, Chest pain, Edema - Respiratory Respiratory: reports: SOB with exertion, Other (on supplemental oxygen). denies: Cough - Gastrointestinal Gastrointestinal: reports: Other (Fair appetite, see HPI). denies: Constipation, Vomiting - Genitourinary Genitourinary: reports: Other (Anuric) - Musculoskeletal Musculoskeletal: reports: Assistive devices (rollator), Transfer issues - Integumentary Integumentary: reports: Dryness (generalized) - Neurological Neurological: reports: General weakness - Psychiatric Psychiatric: reports: Depression - Endocrine Endocrine: denies: Diabetes type 2 - Hematologic/Lymphatic Hematologic/Lymph: reports: Bruising - All Other Systems All Other Systems: reports: Reviewed and negative Physical Exam - Vital Signs Temperature: 36.4 C Pulse Rate: 89 O2 Saturation: 98 (on 2L via NC) Blood Pressure: 109/76 - Physical Exam General Appearance: positive: No acute distress, Alert, Cachetic, Other (chroniclly ill appearing, well groomed, appears fatigued) Eyes Bilateral: positive: Other (+corrective lenses) ENT: positive: No signs of dehydration Neck: positive: No JVD, Trachea midline, Other (thin) Cardiovascular: positive: No murmur, Irregularly irregular Respiratory: positive: No respiratory distress, Breath sounds nml, Other ( on supplemental oxygen). negative: Wheezes Abdomen: positive: Non-tender, Soft, Nml bowel sounds. negative: Guarding, Distended Skin: positive: Dryness (generalized), Bruising (right hand noted ecchymosis) Extremities: positive: No pedal edema Neurologic/Psychiatric: positive: Oriented x3, Weakness, Flat affect Palliative Care - POLST Patient has POLST: Yes POLST Status: DNR, Selective Treatment Pain: Comment (chronic back pain if standing for long periods of time. using his lift recliner more for support.) Tiredness/Fatigue: Moderate (4-6) Drowsiness/Sedation: None Nausea: None Anorexia: Mild (1-3) Dyspnea: Moderate (4-6) Depression: None Anxiety: None Sleep: Variable sleep pattern (uses melatonin) Constipation: Managed Performance Status: Patient is ambulatory with his rollator with a history of falls. No falls recently. Most meals are attended to by his caregivers through [employer]. Medications are managed by his primary caregiver/healthcare agent, Naina. Bathroom has been fixed but is not entirely complete with dhiraj. PPS 50% - Palliative Care Discussion: The patient is discouraged regarding his present limitations and quality of life due to dietary restrictions and coronavirus restrictions. He gets through the motions day by day but is not looking at benefits versus burdens regarding his options. He continues to see dialysis as something he "must do" as there is "no other option." He continues to perseverate regarding needing increased assistance with showering and this is something that he greatly desires however, this is not something that is feasible with his present caregivers and his [employer] rifle case repairer is working on finding an additional replacement for his friend/DPOA, Naina to provide that physical support as the patient is slowly declining functionally and assist in his abilities. However, he and his friend Naina have determined that she will remain his healthcare power of roller presser operator and she will continue to manage his medications. He wishes to remain at home as long as possible and is able to concede there may be a time that he will need to accept placement if more [employer] [facility] hours are not offered to him. He does not appear to perceive insight regarding his declining health and multiple comorbidities. Impression and Recommendations - Palliative Care Impression: This is a frail 70-year-old male with significant cardiac history of atrial fibrillation, cardiomyopathy, 3 separate primary malignancies on surveillance, and end-stage renal disease on dialysis. The patient continues to perceive he needs to continue moving forward with treatment and diaylsis as there "is nothing else to do" with underlying apathy. He is not looking into evaluating benefits vs burdens at this particular time. He continues to have slow, functional decline but wants to remain in place. Recommendations/Counseling Done: 1.End-stage renal disease. He has been on dialysis since July 2017. He is followed by Dr. Caruso who manages his medications. Recently hospitalized in November 2019 due to hyperkalemia and has been consistent regarding taking his calcium acetate with meals. The patient continues to wish to proceed with hemodialysis has alternative options are not something he wishes to address at the present time. 2. Dyspnea due to cardiomyopathy and history of pleural effusion. Is on home supplemental oxygen. Reviewed energy conservation techniques and encouragement of taking his supplemental oxygen outside of the home for support. 3. Atrial fibrillation. History of GI bleed on warfarin. On aspirin 81 mg daily for cardiac prophylaxis. On metoprolol for rate control. Follow-up wit h cardiology as scheduled. 4. Physical deconditioning. Weight has remained stable. Multiple factors contributing given the patient's underlying end-stage renal disease, cardiomyopathy, and sedentary lifestyle. Fall precautions. Encouraged to ambulate with his Rollator. 5. Advanced care planning. Patient has POLST in place as DN AR with limited interventions. The patient's healthcare agent will remain his friends, Naina despite her need to transition out of the role of caregiver due to the increasing physical demands that the patient is requiring regarding his care. Introduced the idea that there will become a point in time that the patient may require increased physical support and may require a higher level of care than within his home environment. That is not something that the patient wishes to pursue at looking regarding long-term planning at the present time.At the present time will place on hold for palliative care services. Patient and friend/DPOA, Naina aware to contact palliative care if there is a change in condition, hospitalization or further support and assistance is needed regarding advanced care planning. Palliative care is available for problem solving as needed and all parties in agreement. Total time spent 40 minutes with greater than 50% of this spent in counseling and coordination of care with patient and friend/DPOA Naina; introduction of c aregiving options for the future if increased caregiving needs evolve; review of present goals; review of hospital discharge paperwork; and anticipatory guidance. Disclaimer: The chart note was formulated using voice recognition technology and unfortunately sound alike errors may occur.
== END 2020-12-22 12:31 | disposition home or self-care (01) ==
LOC: PC 12:30
PROVIDERS: ATTEND Nurse Practitioner Family
DX: Z51.5 Encounter for palliative care (principal); I13.11 Hypertensive heart and chronic kidney disease without heart failure, with stage 5 chronic kidney disease, or end stage renal disease; N18.6 End stage renal disease; Z99.2 Dependence on renal dialysis; Z90.5 Acquired absence of kidney; I48.91 Unspecified atrial fibrillation; Z79.82 Long term (current) use of aspirin; I42.9 Cardiomyopathy, unspecified; Z99.81 Dependence on supplemental oxygen; R53.81 Other malaise; Z85.048 Personal history of other malignant neoplasm of rectum, rectosigmoid junction, and anus; Z85.528 Personal history of other malignant neoplasm of kidney; Z85.118 Personal history of other malignant neoplasm of bronchus and lung; Z66 Do not resuscitate
CPT/HCPCS: 99349

== ENCOUNTER 2021-01-06 16:01 | Outpatient (CLI) | payer MEDICARE, MEDICAID | END 2021-01-06 16:02 | disposition short-term general hospital (02) | LOC: EMS 16:01 | DX: K59.00 Constipation, unspecified (principal); R53.1 Weakness | CPT/HCPCS: A0425; A0429 ==

== ENCOUNTER 2021-01-06 20:57 | Outpatient (CLI) | payer MEDICARE, MEDICAID | END 2021-01-06 20:58 | disposition EMS.NT | LOC: EMS 20:57 | DX: Z03.89 Encounter for observation for other suspected diseases and conditions ruled out (principal) ==

== ENCOUNTER 2021-04-16 18:02 | Outpatient (CLI) | payer MEDICARE, MEDICAID | END 2021-04-16 18:03 | disposition home or self-care (01) | LOC: EMS 18:02 | DX: R53.1 Weakness (principal) | CPT/HCPCS: A0425; A0427 ==

== ENCOUNTER 2021-04-16 18:23 | Emergency (ER) | payer MEDICARE, MEDICAID ==
--- NOTE | 2021-04-16 18:33 | ED Physician Documentation ---
History of Present Illness - Stated complaint Stated Complaint: HEAT ISSUES AFTER DIALYSIS - History obtained from History obtained from: Patient, EMS - Additonal information Additional information: 70-year-old gentleman presents with weakness. He was feeling weak before dialysis today, he goes Sunday, , Sunday. He improved somewhat during dialysis but then went home. He lives in a trailer with a fan but no air conditioning. Its over 90 degrees out and over the next few hours started to feel quite weak and hot. Noted to be modestly hypotensive on the way here in the range of 80 or 90 systolic. Denies chest pain or increased trouble breathing. He is chronically on oxygen, he does not know why. Review of the chart shows that he has a history of lung cancer and hypertensive nephropathy. He has permanent A. fib and cardiomyopathy. Previously was on anticoagulation but stopped due to GI bleeding. He lives alone but has a visiting caregiver. Review of Systems Ten Systems: 10 systems reviewed and negative Constitutional: reports: Fatigue. denies: Fever, Chills Cardiac: denies: Chest pain / pressure Respiratory: reports: Dyspnea (chronic, not worse) PD PAST MEDICAL HISTORY - Past Medical History Cardiovascular: Hypertension, High cholesterol, Coronary artery disease, [place], Atrial fibrillation, Other (Cardiomyopathy with EF 20-25% on echo 03/10/2020) Respiratory: Shortness of breath, Other (Moderate left pleural effusion 2019; Priary lung adenocarcinoma of right upper lobe stage 1A s/p SBRT 04/2018) Neuro: CVA Endocrine/Autoimmune: None GI: GI bleed, C.difficile (June 2018 used protracted pulse therpy with oral vancomycin followed by a taper), Other (Moderately diferentiated adenocarcinoma of rectum) : Dialysis (three times weekly on with Dr. Caruso), Other (ESRD; Left renal cell carcinoma) HEENT: None Psych: None Musculoskeletal: None Derm: None - Past Surgical History Past Surgical History: Yes General: Bowel surgery (low anterior resection with temporary ileostomy on 09/27/[address] Saunders) Ortho: Other HEENT: Tonsil/Adenoidectomy, Other - Present Medications Home Medications: Ambulatory Orders Medication Instructions Recorded Confirmed Aspirin [Aspirin EC] 81 mg PO DAILY 04/28/17 06/09/20 Atorvastatin Calcium 40 mg PO QPM 04/28/17 06/09/20 Torsemide 100 mg PO .TUESTHURSSAT 09/14/19 06/09/20 Docusate Sodium 100 mg PO DAILY 06/09/20 06/09/20 Metoprolol Succinate [Toprol Xl] 100 mg PO .QAM 06/09/20 06/09/20 Metoprolol Succinate [Toprol Xl] 200 mg PO QPM 06/09/20 06/09/20 Midodrine HCl 1 tab PO .TUESTHURSSAT 06/09/20 06/09/20 Multivitamin 1 tab PO DAILY 06/09/20 06/09/20 oxyCODONE [Roxicodone] 5 mg PO Q4H PRN MDD severe pain 06/09/20 06/09/20 Melatonin 5 mg PO QPM 07/08/20 07/08/20 Calcium Acetate [Phoslo] 1 cap PO TIDWM 12/22/20 12/22/20 Cartia Xt 360 mg PO HS 12/22/20 - Allergies Allergies/Adverse Reactions: Allergies Allergy/AdvReac Type Severity Reaction Status Date / Time Sulfa (Sulfonamide Allergy Unknown UNKNOWN Verified 04/16/21 18:42 Antibiotics) - Social History Does the pt smoke?: Yes Smoking Status: Current every day smoker Does the pt drink ETOH?: No Does the pt have substance abuse?: No - Immunizations Immunizations are current?: Yes - POLST Patient has POLST: Yes POLST Status: Full Code PD ED PE NORMAL - Vitals Vital signs reviewed: Yes - General General: Alert and oriented X 3, Other (Pale chronically but not acutely appearing ill gentleman.) - HEENT HEENT: PERRL, EOMI, Moist mucous membranes - Neck Neck: Supple, no meningeal sign, No bony TTP - Cardiac Cardiac: Other (Irregularly irregular and slightly tachycardic.) - Respiratory Respiratory: No respiratory distress, Clear bilaterally - Abdomen Abdomen: Non tender - Back Back: No CVA TTP, No spinal TTP - Derm Derm: Normal color, Warm and dry, Other (Tinea rash on the scalp) - Extremities Extremities: No edema, No calf tenderness / cord - Neuro Neuro: Alert and oriented X 3, Normal speech Results - Vitals Vitals: Vital Signs - 24 hr 04/16/21 04/16/21 04/16/21 18:26 18:41 20:41 Temperature 36.9 C 36.6 C Heart Rate 121 H 117 H 106 H Respiratory 20 106 H Rate Blood Pressure 87/54 L 112/64 O2 Saturation 97 99 Oxygen O2 Source Nasal cannula - EKG (time done) 1832 Rate: Rate (enter#) (105) Rhythm: Atrial fibrillation [place]: Normal QRS: Normal Ischemia: Non specific changes - Labs Labs: Laboratory Tests 04/16/21 04/16/21 18:56 18:56 WBC 7.2 RBC 3.03 L Hgb 9.7 L Hct 30.6 L MCV 101.0 H MCH 32.0 H MCHC 31.7 L RDW 15.8 H Plt Count 238 MPV 9.0 Neut # (Auto) 5.9 Lymph # (Auto) 0.6 L M[place] # (Auto) 0.6 Eos # (Auto) 0.1 Baso # (Auto) 0.0 Absolute Nucleated RBC 0.00 Nucleated RBC % 0.0 Sodium 134 L Potassium 4.0 Chloride 92 L Carbon Dioxide 31 Anion Gap 11.0 BUN 21 H Creatinine 3.8 H Estimated GFR (MDRD) 16 L Glucose 114 H Calcium 9.0 Phosphorus 1.7 L Magnesium 2.0 Total Bilirubin 1.4 H AST 17 ALT 17 Alkaline Phosphatase 88 Total Protein 6.8 Albumin 3.1 L Globulin 3.7 Albumin/Globulin Ratio 0.8 L PD MEDICAL DECISION MAKING - ED course ED course: 70-year-old gentleman presents by ambulance, he has a history of end-stage renal disease and other significant comorbidities. He had dialysis today and then went home to his hot trailer noting that were in a heat wave and it sounds like he became a little dehydrated and hypotensive with prehospital systolics in the 80s and 90s. On arrival he had received about 100 mL of normal saline and we gave him a 500 mL bolus after which he felt pretty much back to baseline. Labs are relatively unremarkable given his comorbidities. He lives alone and he would just be going back to his hot trailer so it was not felt like he would be a safe discharge. I talked with our supervisor roving who coordinated with the social welfare administrator on-call to see if potentially we can get him to a hotel. Turns out all the hotels are full so the social welfare administrator on-call authorized an outpatient stay on the [facility] as a community outpatient. Departure - Departure Disposition: Home, Self Care Clinical Impression: ESRD (end stage renal disease), Weakness, Hypoxemia, Hypovolemia Cardiomyopathy Qualifiers: Cardiomyopathy type: unspecified Qualified Code(s): I42.9 - Cardiomyopathy, unspecified Hypotension Qualifiers: Hypotension type: unspecified hypotension type Qualified Code(s): I95.9 - Hypotension, unspecified Condition: Stable
[2021-04-16] MEDS ORDERED: SODIUM CHLORIDE 0.9% 500 ML IV STA (18:42)
[2021-04-16 19:03] LABS: BASOPHILS % (AUTO) 0.6 %; EOSINOPHILS # (AUTO) 0.1 10^3/uL (0.0-0.7); EOSINOPHILS % (AUTO) 1.1 %; HCT - HEMATOCRIT 30.6 % (42.0-52.0); HGB - HEMOGLOBIN 9.7 g/dL (14.0-18.0); LYMPHOCYTES # (AUTO) 0.6 10^3/uL (1.5-3.5); LYMPHOCYTES % (AUTO) 7.9 %; MEAN CORPUSCULAR HGB CONC 31.7 g/dL (32.0-36.0); MONOCYTES # (AUTO) 0.6 10^3/uL (0.0-1.0); NEUTROPHILS # (AUTO) 5.9 10^3/uL (1.5-6.6); NEUTROPHILS % (AUTO) 82.1 %; PLT - PLATELET COUNT 238 10^3/uL (130-450); RED BLOOD COUNT 3.03 10^6/uL (4.70-6.10); RED CELL DISTRIBUTION WIDTH 15.8 % (12.0-15.0); WHITE BLOOD COUNT 7.2 x10^3/uL (4.8-10.8)
[2021-04-16 19:13] LABS: ALBUMIN 3.1 g/dL (3.2-5.5); ALBUMIN/GLOBULIN RATIO 0.8 (1.0-2.2); BILIRUBIN,TOTAL 1.4 mg/dL (0.2-1.0); CREATININE 3.8 mg/dL (0.6-1.2); PHOSPHORUS 1.7 mg/dL (2.5-4.6); TOTAL PROTEIN 6.8 g/dL (6.7-8.2)
[2021-04-16 20:45] VITALS: BP 112/64
[2021-04-16 23:35] LABS: B. PARAPERTUSSIS- RESP PCR PAN NOT DETECTED; B. PERTUSSIS- RESP PCR PANEL NOT DETECTED; C. PNEUMONIAE- RESP PCR PANEL NOT DETECTED; CORONAVIRUS 229E-RESP PCR NOT DETECTED; CORONAVIRUS HKU1-RESP PCR NOT DETECTED; CORONAVIRUS NL63-RESP PCR NOT DETECTED; CORONAVIRUS OC43-RESP PCR NOT DETECTED; HUMAN METAPNEUMOVIRUS NOT DETECTED; INFLUENZA A- RESP PCR PANEL NOT DETECTED; INFLUENZA B - RESP PCR PANEL NOT DETECTED; M. PNEUMONIAE- RESP PCR PANEL NOT DETECTED; PARAINFLUENZA VIRUS 1 NOT DETECTED; PARAINFLUENZA VIRUS 2 NOT DETECTED; PARAINFLUENZA VIRUS 3 NOT DETECTED; PARAINFLUENZA VIRUS 4 NOT DETECTED; RHINOVIRUS/ENTEROVIRUS NOT DETECTED; RSV- RESP PCR PANEL NOT DETECTED; SARS-CoV-2 -RESP PCR PANEL NOT DETECTED
--- NOTE | 2021-04-17 09:27 | ED Physician Documentation ---
ED Addendum - Addendum Addendum: 04/17/21 09:26 OK for patient to take his own medications from home.
== END 2021-04-18 20:20 | disposition home or self-care (01) ==
LOC: EDUNIT# → ED 18:23
DX: I13.11 Hypertensive heart and chronic kidney disease without heart failure, with stage 5 chronic kidney disease, or end stage renal disease (principal); N18.6 End stage renal disease; R09.02 Hypoxemia; E86.1 Hypovolemia; I48.21 Permanent atrial fibrillation; Z99.81 Dependence on supplemental oxygen; Z85.118 Personal history of other malignant neoplasm of bronchus and lung; I11.9 Hypertensive heart disease without heart failure; Z99.2 Dependence on renal dialysis; F17.200 Nicotine dependence, unspecified, uncomplicated; I95.9 Hypotension, unspecified; Z20.822 Contact with and (suspected) exposure to COVID-19
CPT/HCPCS: 0202U; 36415; 80053; 83735; 84100; 85025; 93005; 96360; 99284

== ENCOUNTER 2021-08-24 03:49 | Outpatient (CLI) | payer MEDICARE, MEDICAID | END 2021-08-24 23:59 | disposition short-term general hospital (02) | LOC: EMS 03:49 | DX: R06.02 Shortness of breath (principal) | CPT/HCPCS: A0425; A0427 ==

== ENCOUNTER 2021-08-30 10:48 | Outpatient (CLI) | payer MEDICARE, MEDICAID | END 2021-08-30 10:49 | disposition EMS.NT | LOC: EMS 10:48 | DX: R53.1 Weakness (principal) ==

== ENCOUNTER 2021-08-31 13:38 | Outpatient (CLI) | payer MEDICARE, MEDICAID | END 2021-08-31 13:39 | disposition critical access hospital (66) | LOC: EMS 13:38 | DX: R53.1 Weakness (principal) | CPT/HCPCS: A0425; A0429 ==

== ENCOUNTER 2021-08-31 14:01 | Observation (INO) | payer MEDICARE, MEDICAID ==
[2021-08-31 15:01] LABS: BASOPHILS # (AUTO) 0.1 10^3/uL (0.0-0.1); BASOPHILS % (AUTO) 0.7 %; EOSINOPHILS # (AUTO) 0.1 10^3/uL (0.0-0.7); EOSINOPHILS % (AUTO) 0.7 %; HGB - HEMOGLOBIN 10.6 g/dL (14.0-18.0); LYMPHOCYTES # (AUTO) 0.4 10^3/uL (1.5-3.5); LYMPHOCYTES % (AUTO) 4.8 %; MEAN CORPUSCULAR HEMOGLOBIN 32.4 pg (27.0-31.0); MEAN CORPUSCULAR HGB CONC 32.1 g/dL (32.0-36.0); MEAN CORPUSCULAR VOLUME 100.9 fL (80.0-94.0); MEAN PLATELET VOLUME 9.5 fL (7.4-11.4); MONOCYTES # (AUTO) 0.7 10^3/uL (0.0-1.0); MONOCYTES % (AUTO) 8.3 %; NEUTROPHILS # (AUTO) 7.6 10^3/uL (1.5-6.6); NEUTROPHILS % (AUTO) 85.2 %; PLT - PLATELET COUNT 281 10^3/uL (130-450); RED BLOOD COUNT 3.27 10^6/uL (4.70-6.10); RED CELL DISTRIBUTION WIDTH 16.2 % (12.0-15.0); WHITE BLOOD COUNT 8.9 x10^3/uL (4.8-10.8)
--- NOTE | 2021-08-31 15:04 | ED Physician Documentation ---
History of Present Illness - Stated complaint Stated Complaint: weakness - Chief complaint Chief Complaint: General - Additonal information Additional information: 71-year-old male who has a history of end-stage renal disease who stopped di alysis more than a week ago presents via EMS with generalized weakness. He is requesting that he be allowed to at this hospital. Patient was discharged from [facility] just over 1 week ago. He presented there for shortness of air tachycardia and hypotension. While there he was found to have a markedly reduced ejection fraction and to be in cardiac and hepatorenal failure. He was also septic. The patient made the decision that he would like all efforts stopped while at [facility] and would liek to be allowed to . He was made a DO NOT RESUSCITATE/DO NOT INTUBATE and thus discharged home with the plan to allow natural , no more dialysis. Patient was to see our hospice team this afternoon but he lives alone and has really no social support. He felt that it was unfair for his cousin who checks on him once or twice a day to come in and find him thus he called 911 and presents here. He is aware that he is dying and that his is likely imminent within the next few hours to days. Unfortunately due to Medicare guidelines we cannot admit this patient strictly to our hospice services therefore the patient will be seen by social work with the goal being transfer to a hospice home. The patient again reiterates that he would like to allow a natural to progress. He requests the monitors and oxygen to be turned off which we will accommodate. PMH: History of rectal cancer, renal cancer, lung cancer with 3 primary malignancies, previous history of GI hemorrhage, hypertension, coronary artery disease, chronic A. fib with RVR, coronary artery disease previous silent myocardial infarction's. Review of Systems Constitutional: reports: Myalgias. denies: Fever, Chills Eyes: reports: Reviewed and negative Ears: reports: Reviewed and negative Nose: reports: Reviewed and negative Throat: reports: Reviewed and negative Cardiac: reports: Reviewed and negative Respiratory: reports: Dyspnea GI: reports: Abdominal Pain, Nausea, Vomiting : reports: Reviewed and negative Skin: reports: Reviewed and negative Musculoskeletal: reports: Reviewed and negative Neurologic: reports: Generalized weakness. denies: Focal weakness, Numbness PD PAST MEDICAL HISTORY - Past Medical History Past Medical History: Yes Cardiovascular: Hypertension, High cholesterol, Coronary artery disease, [place], Atrial fibrillation, Other Respiratory: Emphysema, Shortness of breath, Other Neuro: CVA Endocrine/Autoimmune: None GI: GI bleed, C.difficile, Other : Dialysis, Other HEENT: None Psych: None Musculoskeletal: None Derm: None - Past Surgical History Past Surgical History: Yes General: Bowel surgery Ortho: Other HEENT: Tonsil/Adenoidectomy, Other - Present Medications Home Medications: Ambulatory Orders Medication Instructions Recorded Confirmed Aspirin [Aspirin EC] 81 mg PO DAILY 04/28/17 06/09/20 Atorvastatin Calcium 40 mg PO QPM 04/28/17 06/09/20 Torsemide 100 mg PO .TUESTHURSSAT 09/14/19 06/09/20 Docusate Sodium 100 mg PO DAILY 06/09/20 06/09/20 Metoprolol Succinate [Toprol Xl] 100 mg PO .QAM 06/09/20 06/09/20 Metoprolol Succinate [Toprol Xl] 200 mg PO QPM 06/09/20 06/09/20 Midodrine HCl 1 tab PO .ESTHURSSAT 06/09/20 06/09/20 Multivitamin 1 tab PO DAILY 06/09/20 06/09/20 oxyCODONE [Roxicodone] 5 mg PO Q4H PRN MDD severe pain 06/09/20 06/09/20 Melatonin 5 mg PO QPM 07/08/20 07/08/20 Calcium Acetate [Phoslo] 1 cap PO TIDWM 12/22/20 12/22/20 Cartia Xt 360 mg PO HS 12/22/20 - Allergies Allergies/Adverse Reactions: Allergies Allergy/AdvReac Type Severity Reaction Status Date / Time Sulfa (Sulfonamide Allergy Unknown UNKNOWN Verified 08/31/21 14:05 Antibiotics) - Social History Does the pt smoke?: Yes Smoking Status: Former smoker Does the pt drink ETOH?: No Does the pt have substance abuse?: No - Immunizations Immunizations are current?: Yes - POLST Patient has POLST: Yes POLST Status: Full Code PD ED PE EXPANDED - General General: Alert, No acute distress. No: Well developed/nourished (Appears chronically ill) - Cardiac Cardiac: Irregularly irregular, Radial strong equal, Pedal strong equal, Cap refill < 2 sec. No: Murmur Present - Respiratory Respiratory: Clear to ausultation jade. No: Distress, Labored - Abdomen Abdomen: Normal Bowel sounds - Derm Derm: Normal color (Dry). No: Petecchiae, Purpura - Extremities Extremities: Normal. No: Deformity, Tenderness - Neuro Neuro: CNII-XII intact - GCS Eye Opening: Spontaneous Motor: Obeys Commands Verbal: Oriented Total: 15 Results - Vitals Vitals: Vital Signs - 24 hr 08/31/21 08/31/21 08/31/21 14:05 15:00 15:38 Temperature 36.4 C L Heart Rate 104 H 102 H 92 Respiratory 20 10 L 22 Rate Blood Pressure 116/73 119/70 118/72 O2 Saturation 83 L 91 L 93 Oxygen O2 Source Nasal cannula Oxygen Flow Rate 4 - EKG (time done) 1436 Rate: Rate (enter#) (82) Rhythm: Atrial fibrillation [place]: Normal Intervals: Prolonged QT, RBBB. No: Normal IA QRS: Normal Ischemia: Normal ST segments Compare to prior EKG: Unchanged from prior EKG Computer interpretation: Agree with computer - Labs Labs: Laboratory Tests 08/31/21 08/31/21 08/31/21 14:52 14:52 14:52 WBC 8.9 RBC 3.27 L Hgb 10.6 L Hct 33.0 L MCV 100.9 H MCH 32.4 H MCHC 32.1 RDW 16.2 H Plt Count 281 MPV 9.5 Neut # (Auto) 7.6 H Lymph # (Auto) 0.4 L Reeves # (Auto) 0.7 Eos # (Auto) 0.1 Baso # (Auto) 0.1 Absolute Nucleated RBC 0.00 Nucleated RBC % 0.0 Sodium 134 L Potassium 7.4 H* Chloride 85 L Carbon Dioxide 19 L Anion Gap 30.0 H BUN 108 H* Creatinine 16.2 H* Estimated GFR (MDRD) 3 L Glucose 97 Calcium 9.8 Total Bilirubin 1.5 H AST 17 ALT 15 Alkaline Phosphatase 129 H Troponin I High Sens 31.4 H* Total Protein 7.3 Albumin 3.2 Globulin 4.1 Albumin/Globulin Ratio 0.8 L Lipase 34 Nasal Adenovirus (PCR) Nasal B. parapertussis DNA (PCR) Nasal Coronavir 229E PCR Nasal Coronavir HKU1 PCR Nasal Coronavir NL63 PCR Nasal Coronavir OC43 PCR Nasal Enterovir/Rhinovir PCR Nasal Influenza B PCR Nasal Influenza A PCR Nasal Parainfluen 1 PCR Nasal Parainfluen 2 PCR Nasal Parainfluen 3 PCR Nasal Parainfluen 4 PCR Nasal RSV (PCR) Nasal B.pertussis DNA PCR Nasal C.pneumoniae (PCR) Vincent Human Metapneumo PCR Nasal M.pneumoniae (PCR) Nasal SARS-CoV-2 (PCR) 08/31/21 15:50 WBC RBC Hgb Hct MCV MCH MCHC RDW Plt Count MPV Neut # (Auto) Lymph # (Auto) Reeves # (Auto) Eos # (Auto) Baso # (Auto) Absolute Nucleated RBC Nucleated RBC % Sodium Potassium Chloride Carbon Dioxide Anion Gap BUN Creatinine Estimated GFR (MDRD) Glucose Calcium Total Bilirubin AST ALT Alkaline Phosphatase Troponin I High Sens Total Protein Albumin Globulin Albumin/Globulin Ratio Lipase Nasal Adenovirus (PCR) NOT DETECTED Nasal B. parapertussis DNA (PCR) NOT DETECTED Nasal Coronavir 229E PCR NOT DETECTED Nasal Coronavir HKU1 PCR NOT DETECTED Nasal Coronavir NL63 PCR NOT DETECTED Nasal Coronavir OC43 PCR NOT DETECTED Nasal Enterovir/Rhinovir PCR NOT DETECTED Nasal Influenza B PCR NOT DETECTED Nasal Influenza A PCR NOT DETECTED Nasal Parainfluen 1 PCR NOT DETECTED Nasal Parainfluen 2 PCR NOT DETECTED Nasal Parainfluen 3 PCR NOT DETECTED Nasal Parainfluen 4 PCR NOT DETECTED Nasal RSV (PCR) NOT DETECTED Nasal B.pertussis DNA PCR NOT DETECTED Nasal C.pneumoniae (PCR) NOT DETECTED Vincent Human Metapneumo PCR NOT DETECTED Nasal M.pneumoniae (PCR) NOT DETECTED Nasal SARS-CoV-2 (PCR) NOT DETECTED PD MEDICAL DECISION MAKING - ED course Complexity details: reviewed results, re-evaluated patient, d/w patient ED course: 71-year-old male who has a history of end-stage renal disease as well as multiple previous malignancies presents to the emergency department for evaluation of his dying process. He was discharged from [facility] just over 1 week ago with sepsis, end-stage renal disease for which he decided to stop dialysis as well as very poor ejection fraction. He lives alone and has no social support and he needs more help than he has available. Unfortunately due to Medicare Medi-Beck guidelines we are unable to admit this patient simply for the processes of dying thus I will ask our rollway worker to evaluate for the possibility of transfer to hospice home. Patient is adamant that he be allowed to naturally. He does not require request intubation fluids or pressors. He would simply like to be made comfortable. 1620: I have spoken with REGIONAL BUSINESS MANAGER Yordan. She is the hospice attending with [facility] with [facility] in [place]. She has verbally accepted the patient. Given the late hour of the day she requests that we try and transfer the patient tomorrow in the a.m. The service learning coordinator will be in contact with us. I discussed this with Dr. Elkins who admit the patient to our hospital under observation status until transport can be arranged. Departure - Departure Disposition: ED Place in Observation Clinical Impression: ESRD (end stage renal disease), Encounter for dying care
--- NOTE | 2021-08-31 15:06 | XRAY Report ---
PROCEDURE: Chest 1 View X-Ray INDICATIONS: Chest Pain; shortness of breath x1 day. TECHNIQUE: One view of the chest was acquired. COMPARISON: April 28, 2017 FINDINGS: SUPPORT DEVICES: None. LUNGS/PLEURA: Blunting of the left costophrenic sulcus, likely reflecting pleural fluid/atelectasis. Mildly prominent interstitial markings, which may reflect pulmonary vascular congestion. MEDIASTINUM: Enlargement of the cardiac silhouette, compatible with cardiomegaly and/or pericardial e ffusion. BONES/SOFT TISSUES: No acute abnormality. IMPRESSION: 1.Cardiomegaly with pulmonary edema pattern as detailed above. Reviewed by: Tino Jones MD on 08/31/2021 3:05 PM [facility] Approved by: Tino Jones MD on 08/31/2021 3:05 PM [facility] Station ID: [id number]
[2021-08-31 15:26] LABS: ALBUMIN 3.2 g/dL (3.2-5.5); ALBUMIN/GLOBULIN RATIO 0.8 (1.0-2.2); BILIRUBIN,TOTAL 1.5 mg/dL (0.2-1.0); CALCIUM 9.8 mg/dL (8.5-10.3); TOTAL PROTEIN 7.3 g/dL (6.7-8.2)
[2021-08-31 15:30] LABS: CREATININE 16.2 mg/dL (0.6-1.2); POTASSIUM 7.4 mmol/L (3.5-5.0)
[2021-08-31 15:39] VITALS: BP 118/72
[2021-08-31] MEDS ORDERED: oxyCODONE 5 MG TABLET PO STA (15:51)
[2021-08-31] MEDS ORDERED: MORPHINE 2 MG/ML CARPUJECT IVP PRN ×3 (16:56→17:42)
[2021-08-31] MEDS ORDERED: ACETAMINOPHEN 325 MG TABLET PO PRN ×2 (16:56→17:04)
[2021-08-31] MEDS ORDERED: ONDANSETRON 4 MG/2 ML VIAL IVP PRN (16:56)
[2021-08-31] MEDS ORDERED: SODIUM CHLORIDE FLUSH 0.9% 10 ML SYRINGE IVP PRN (16:56)
[2021-08-31] MEDS ORDERED: oxyCODONE 5 MG TABLET PO PRN ×3 (16:56→17:03)
[2021-08-31 17:01] LABS: B. PARAPERTUSSIS- RESP PCR PAN NOT DETECTED; B. PERTUSSIS- RESP PCR PANEL NOT DETECTED; C. PNEUMONIAE- RESP PCR PANEL NOT DETECTED; CORONAVIRUS 229E-RESP PCR NOT DETECTED; CORONAVIRUS HKU1-RESP PCR NOT DETECTED; CORONAVIRUS NL63-RESP PCR NOT DETECTED; CORONAVIRUS OC43-RESP PCR NOT DETECTED; HUMAN METAPNEUMOVIRUS NOT DETECTED; INFLUENZA A- RESP PCR PANEL NOT DETECTED; INFLUENZA B - RESP PCR PANEL NOT DETECTED; M. PNEUMONIAE- RESP PCR PANEL NOT DETECTED; PARAINFLUENZA VIRUS 1 NOT DETECTED; PARAINFLUENZA VIRUS 2 NOT DETECTED; PARAINFLUENZA VIRUS 3 NOT DETECTED; PARAINFLUENZA VIRUS 4 NOT DETECTED; RHINOVIRUS/ENTEROVIRUS NOT DETECTED; RSV- RESP PCR PANEL NOT DETECTED; SARS-CoV-2 -RESP PCR PANEL NOT DETECTED
--- NOTE | 2021-08-31 17:08 | HISTORY & PHYSICAL EXAMINATION ---
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 Routine laboratory tests show patient had creatinine 16.2, BUN 108, potassium 7.4. Pt stopped dialysis more than a week ago. He was discharged to home to allow natural . Patient was seen by our hospice team at this afternoon but he lives alone and has no social support. ER provider discussed the case with hospice associated with [facility] in [place]. Pt was verbally accepted. Plan is to transfer the patient on tomorrow for hospice care. Pt is alert and oriented. Discussed the care goal with pt. pt made clearly again, turned off vital and oxygen monitor and allow natural to process "let it process, let me go." New PLOST forum on today show DNR and comfort-focus treatment. History - Past Medical History Cardiovascular: reports: Hypertension, High cholesterol, Coronary artery disease, [place], Atrial fibrillation, Other Respiratory: reports: Emphysema, Shortness of breath, Other Neuro: reports: CVA Endocrine/Autoimmune: reports: None GI: reports: GI bleed, C.difficile, Other : reports: Dialysis, Other HEENT: reports: None Psych: reports: None Musculoskeletal: reports: None Derm: reports: None MRSA Hx?: No - Past Surgical History General: reports: Bowel surgery Ortho: reports: Other HEENT: reports: Tonsil/Adenoidectomy, Other - Family & Social History Family History: Mother: , Father: Living Situation: Alone Social History Notes: work at [employer] store - Substance History Use: Uses substance without health or social issues: Tobacco (one pack per day former smoker) - POLST Patient has POLST: Yes POLST Status: Full Code Meds/Allgy - Home Medications Home Medications: Ambulatory Orders Medication Instructions Recorded Confirmed Aspirin [Aspirin EC] 81 mg PO DAILY 04/28/17 06/09/20 Atorvastatin Calcium 40 mg PO QPM 04/28/17 06/09/20 Torsemide 100 mg PO .TUESTHURSSAT 09/14/19 06/09/20 Docusate Sodium 100 mg PO DAILY 06/09/20 06/09/20 Metoprolol Succinate [Toprol Xl] 100 mg PO .QAM 06/09/20 06/09/20 Metoprolol Succinate [Toprol Xl] 200 mg PO QPM 06/09/20 06/09/20 Midodrine HCl 1 tab PO .ESTHURSSAT 06/09/20 06/09/20 Multivitamin 1 tab PO DAILY 06/09/20 06/09/20 oxyCODONE [Roxicodone] 5 mg PO Q4H PRN MDD severe pain 06/09/20 06/09/20 Melatonin 5 mg PO QPM 07/08/20 07/08/20 Calcium Acetate [Phoslo] 1 cap PO TIDWM 12/22/20 12/22/20 Cartia Xt 360 mg PO HS 12/22/20 - Allergies Allergies/Adverse Reactions: Allergies Allergy/AdvReac Type Severity Reaction Status Date / Time Sulfa (Sulfonamide Allergy Unknown UNKNOWN Verified 08/31/21 14:05 Antibiotics) Review of Systems - Constitutional Constitutional: denies: Fever, Chills - Eyes Eyes: denies: Pain - Cardiovascular Cariovascular: denies: Chest pain - Respiratory Respiratory: reports: Cough, SOB at rest. denies: Sputum production - Gastrointestinal Gastrointestinal: denies: Abdominal pain, Nausea, Vomiting - Genitourinary Genitourinary: denies: Dysuria - Neurological Neurological: reports: General weakness. denies: Focal weakness, Headache, Numbness, Seizures, Slurred speech - Psychiatric Psychiatric: denies: Depression, Anxiety, Suicidal Exam - Vital Signs Vital Signs: Vital Signs x48h Temp Pulse Resp BP Pulse Ox 08/31/21 15:38 92 22 118/72 93 08/31/21 15:00 102 H 10 L 119/70 91 L 08/31/21 14:05 36.4 C L 104 H 20 116/73 83 L - Physical Exam General Appearance: positive: Alert, Mild distress. negative: Lethargic Eyes Bilateral: positive: Normal inspection, No lid inflammation ENT: positive: ENT inspection nml, Dry mucous membranes. negative: Purulent nasal drainage Neck: positive: Nml inspection, Trachea midline. negative: Tracheal deviation Respiratory: positive: Chest non-tender, Rales Cardiovascular: positive: Regular rate & rhythm, Tachycardia. negative: Systolic murmur Peripheral Pulses: positive: 2+ Abdomen: positive: Non-tender, Nml bowel sounds, No distention. negative: Tenderness Back: positive: Nml inspection Skin: positive: Color nml, Warm, Dry Extremities: positive: Non-tender, Nml appearance Neurologic/Psychiatric: positive: Oriented x3, Sensation nml, Mood/affect nml. negative: Sensory loss, Facial droop, Slurred/abnml speech, Depressed mood/affect Conclusion/Plan - Problem List (1) ESRD (end stage renal disease) Conclusion/Plan: Patient has history ESRD, he stopped dialysis a week ago. pt is alert and oriented. Pt seek natural , focus on comfort measure only in hospital, he declined any further treatment or any monitor in hospital. plan comfortable care only at hospital, and d/c pt to hospice care on [facility] on tomorrow. consult with social media strategist for d/c planning. (2) Comfort measures only status Conclusion/Plan: pt request comfort measure only status. he report he took oxycodone at home, will resume it and add Morphine as needed for comfort measure purpose (3) Hyperkalemia Conclusion/Plan: pt's potassium is 7.4 on today. he stopped dialysis one week ago. pt request no treatment for him. he seek comfort care only, and natural which could happen on anytime in which pt verbally understood. pt also request hospice care. plan is pt could be transferred to hospice care on tomorrow. (4) Cancer of multiple primary sites Conclusion/Plan: pt understood he had 3 primary cancers. he request comfort care only in the hospital and hospice care to be followup. Oxycodone and Morphine for pain control. consult social media strategist for d/c planning - Lab Results Fish Bones: 08/31/21 14:52 08/31/21 14:52 Core Measures - Anticipated LOS I expect patient to be DC'd or transferred within 96 hours.: Yes - DVT/VTE - Prophylaxis VTE/DVT Device ordered at admit?: No Not Ordered - Patient Reason: Refusal by patient VTE/DVT Prophylaxis med ordered at admit?: No Not Ordered - Medical Reason: Patient/Family refused
[2021-08-31] MEDS ORDERED: ONDANSETRON ODT 4 MG TABLET TL STA (17:16)
[2021-08-31] MEDS: SODIUM CHLORIDE FLUSH 0.9% 10 ML SYRINGE IVP SCH (19:43)
[2021-09-01] MEDS ORDERED: BENZOCAINE/MENTHOL LOZENGE MM PRN (00:46)
[2021-09-01] MEDS: SODIUM CHLORIDE FLUSH 0.9% 10 ML SYRINGE IVP SCH ×2 (05:33→07:55)
[2021-09-01] MEDS ORDERED: LIDOCAINE PATCH 5% TOP PRN (07:17)
[2021-09-01] MEDS ORDERED: LIDOCAINE OINTMENT 5% 35.44 GM TUBE TOP SCH (09:00)
--- NOTE | 2021-09-01 09:16 | Discharge Plan ---
Discharge Plan for SNF / [facility] - Discharge Plan And Transition Orders Problem Reviewed?: Yes Disposition: 50 Hospice/Home DC/Xfer Allergies and Adverse Reactions: Allergies Allergy/AdvReac Type Severity Reaction Status Date / Time Sulfa (Sulfonamide Allergy Unknown UNKNOWN Verified 08/31/21 14:05 Antibiotics) Health Concerns: hospice care Plan of Treatment: pt hope to have hospice care. pt also hope to keep his home medications, and his home Oxycodone and order new Lidocaine cream. please followup with hosp[place] care in [facility] Goals: focus On comfortable care, quality of life, hospice care Assessment: pt seek hospice care, and agreed to be transferred to [facility] for hospice care - SNF / [place] Transition Orders Admit to (Facility): [facility] in [place] Under the care of (Name): hospice team at [facility] Discharge Diagnosis: ESRD, hyperkalemia, heart failure, cancer of multiple primary sites, comfort measure only status, encounter for hospice care Medicare Certification Statement: I certify that [facility] al[facility] care is medically necessary on a continuing basis for any of the conditions for which she/he is receiving care during hospitalization. Notify PCP of admission and forward orders to primary provider for signature. Other Notification Orders: Call PCP immediately if patient develops dyspnea, chest pain/tightness or edema. Additional Bowel Program Orders: If no BM after 2 days, nurse may give M.O.M. 30ml PO PRN and/or ducolax Supp 1 MO and/or KOSTA 250mg P.O., and/or senna 1-2 tabs PO. On day 3 nurse may give repeat above order until residents constipation is resolved. Oxygen Orders: 4 lpm of O2 by [place] now or as needed Medication Orders: PLEASE REFER TO THE DISCHARGE MEDICATION LIST. Insulin Orders?: No - Medications New Prescriptions: oxyCODONE [Roxicodone] 5 mg PO Q8HR PRN #15 tablet PRN Reason: Pain Lidocaine Ointment 5% [Xylocaine Ointment 5%] 1 applic TOP BID PRN #35.44 gm PRN Reason: Pain - Diet Type: Geriatric Texture: Regular Liquids: Thin May have monthly special meal: Yes
--- NOTE | 2021-09-01 10:10 | DISCHARGE SUMMARY ---
Discharge Summary Admit Date: 08/31/21 Discharge Date: 09/01/21 Discharging Provider: Jasen Patel Primary Care Provider: Cooper Ferrer Discharge Disposition: 50 Hospice/Home DC/Xfer Discharge Facility Name: [facility] [place] for hospice care - DIAGNOSES Discharge Diagnoses with Status of Each Condition: (1) ESRD (end stage renal disease) pt stopped dialysis a week ago. pt has creatinine 16.2 and BUN 108. Pt seek hospice care and natural , focus on comfort measure only in hospital, he declined any further treatment or any monitor in hospital. [facility] in [place] accepted pt. pt is d/c on today to [facility] in [place] for hospice care. (2) Comfort measures only status pt request comfort measure only status at hospital. (3) Hyperkalemia pt's potassium was 7.4 on the admission. he stopped dialysis one week ago. pt request no treatment for him. he seek comfort care only at hospital, and natural and seek hospice care. pt is d/c on today to [facility] in [place] for hospice care. (4) Cancer of multiple primary sites pt understood he had 3 primary cancers. he request comfort care only in the hospital and hospice care to be followup. pt hope to have Oxycodone and lidocaine cream for pain control. (5)encounter for hospice care he request comfort care only in the hospital and hospice care to be followup. Pt accepted to have [facility] in [place] for his hospice care. pt is d/c on today to [facility] in [place] for hospice care. pt hope to have Oxycodone and lidocaine cream for pain control which are prescribed for pt. 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 Routine laboratory tests show patient had creatinine 16.2, BUN 108, potassium 7.4. Pt stopped dialysis more than a week ago. He was discharged to home to allow natural . Patient was seen by our hospice team at this afternoon but he lives alone and has no social support. ER provider discussed the case with hospice associated with [facility] in [place]. Pt was verbally accepted. Plan is to transfer the patient on tomorrow for hospice care. Pt is alert and oriented. Discussed the care goal with pt. pt made clearly again, turned off vital and oxygen monitor and allow natural to process "let it process, let me go." New PLOST forum on today show DNR and comfort-focus treatment. - ALLERGIES Allergies/Adverse Reactions: Allergies Allergy/AdvReac Type Severity Reaction Status Date / Time Sulfa (Sulfonamide Allergy Unknown UNKNOWN Verified 08/31/21 14:05 Antibiotics) - MEDICATIONS Home Medications: Ambulatory Orders Medication Instructions Recorded Confirmed Aspirin [Aspirin EC] 81 mg PO DAILY 04/28/17 06/09/20 Atorvastatin Calcium 40 mg PO QPM 04/28/17 06/09/20 Torsemide 100 mg PO .TUESTHURSSAT 09/14/19 06/09/20 Docusate Sodium 100 mg PO DAILY 06/09/20 06/09/20 Metoprolol Succinate [Toprol Xl] 100 mg PO .QAM 06/09/20 06/09/20 Metoprolol Succinate [Toprol Xl] 200 mg PO QPM 06/09/20 06/09/20 Midodrine HCl 1 tab PO .TUESTHURSSAT 06/09/20 06/09/20 Multivitamin 1 tab PO DAILY 06/09/20 06/09/20 oxyCODONE [Roxicodone] 5 mg PO Q4H PRN MDD severe pain 06/09/20 06/09/20 Melatonin 5 mg PO QPM 07/08/20 07/08/20 Calcium Acetate [Phoslo] 1 cap PO TIDWM 12/22/20 12/22/20 Cartia Xt 360 mg PO HS 12/22/20 Lidocaine Ointment 5% [Xylocaine 1 applic TOP BID PRN #35.44 gm 09/01/21 Ointment 5%] oxyCODONE [Roxicodone] 5 mg PO Q8HR PRN #15 tablet 09/01/21 - PHYSICAL EXAM AT DISCHARGE General Appearance: positive: No acute distress, Alert. negative: Lethargic Eyes Bilateral: positive: Normal inspection, No lid inflammation ENT: positive: ENT inspection nml. negative: Purulent nasal drainage Neck: positive: Nml inspection, Trachea midline. negative: Tracheal deviation Respiratory: positive: Chest non-tender, No respiratory distress. negative: Wheezes Cardiovascular: positive: Irregularly irregular, Tachycardia. negative: Bradycardia, Systolic murmur Peripheral Pulses: positive: 2+ Abdomen: positive: Non-tender, No distention. negative: Tenderness Back: positive: Nml inspection Skin: positive: Color nml, Warm, Dry Extremities: positive: Non-tender. negative: Calf tenderness Neurologic/Psychiatric: positive: Oriented x3, Sensation nml. negative: Weakness, Sensory loss, Facial droop, Slurred/abnml speech, Depressed mood/affect - LABS Result Diagrams: 08/31/21 14:52 08/31/21 14:52 - FOLLOW UP Follow Up: pt may followup with hospice care at [facility] in [place] - TIME SPENT Time Spent in Discharge (Minutes): 30
[2021-09-01] MEDS ORDERED: LIDOCAINE OINTMENT 5% 35.44 GM TUBE TOP PRN (10:24)
== END 2021-09-01 11:06 | disposition hospice, home (50) ==
LOC: EDUNIT# → ED 14:01 → MS2 16:56
PROVIDERS: ADMIT Nurse Practitioner Gerontology; ATTEND Nurse Practitioner Gerontology
DX: I13.2 Hypertensive heart and chronic kidney disease with heart failure and with stage 5 chronic kidney disease, or end stage renal disease (principal); I50.9 Heart failure, unspecified; N18.6 End stage renal disease; Z51.5 Encounter for palliative care; E87.5 Hyperkalemia; C20 Malignant neoplasm of rectum; C64.2 Malignant neoplasm of left kidney, except renal pelvis; C34.11 Malignant neoplasm of upper lobe, right bronchus or lung; Z66 Do not resuscitate; Z20.822 Contact with and (suspected) exposure to COVID-19; I25.10 Atherosclerotic heart disease of native coronary artery without angina pectoris; I48.91 Unspecified atrial fibrillation; J43.9 Emphysema, unspecified; I25.2 Old myocardial infarction; Z87.891 Personal history of nicotine dependence
CPT/HCPCS: 36415; 71045; 80053; 83690; 84484; 85025; 87631; 93005; 99283; 99285; A9270; G0378; Q0162; 0202U